=== PATIENT | female | born 1940 | race Caucasian/White ===

== ENCOUNTER → 2016-12-17 | Outpatient (CLI) | payer OTHER, MEDICARE ==
[~2016-12-17] MED LIST: AMLO-110 PO; AMLO-114 PO; ASCO100T4 PO; ASPI81TA28 PO; ATEN50TA8 PO; CHOL1000 PO; CHOL100010 PO; DENO60SO SC; DICL1GEL12 TP; DICL1GEL28 TOP; FSMD/70 PO; LPT10 PO; LSX20 PO; MELO15TA4 PO; MULT-506 PO; NRV/10 PO; OMEP20CA9 PO; POTA-331 PO; POTA20TA16 PO; TRAM-10 PO; VITA400C28 PO; VITA400C3 PO
== END | disposition home or self-care (01) ==
LOC: C.LABSPEC 11:56
PROVIDERS: ATTEND Obstetrics & Gynecology
DX: N76.0 Acute vaginitis (principal); N76.2 Acute vulvitis

== ENCOUNTER → 2017-04-26 | Day surgery (SDC) | payer OTHER, MEDICARE ==
[2017-04-19 12:03] VITALS: BMI 24.0
--- NOTE | 2017-04-19 12:35 | PAT Medication Instructions ---
Service Date Apr 19, 2017. Current Home Medication List Alendronate/Cholecalciferol (Fosamax+D 70MG/2800 Iu), 1 TABLET PO WK Amlodipine (Norvasc), 10 MG PO QAM Ascorbic Acid (Vitamin C), 100 MG PO QAM Aspirin (Aspirin Ec), 81 MG PO QAM Atenolol (Tenormin), 50 MG PO QAM Atorvastatin (Atorvastatin Calcium), 10 MG PO HS Cholecalciferol (Vitamin D3), 1 TAB PO QAM Denosumab (Prolia), 60 MG SC [id number] Diclofenac Sodium (Topical) (Voltaren 1% Top Gel), 1 DOSE TP BID PRN for RN Furosemide (Furosemide), 20 MG PO QAM Multivitamin (Multivitamin), 1 TAB PO QAM Omeprazole (Prilosec), 20 MG PO QAM Potassium Ext Rel (Klor-Con), 20 MEQ PO QAM Tramadol (Ultram), 50 MG PO Q6H PRN for RN Vitamin E (Alph-E), 400 UNITS PO QAM Medication Instructions For Your Scheduled Surgery - Hold the following medications 1 weeks prior to surgery: Vitamin E (Alph-E), 400 UNITS PO QAM - Hold the following medications 24 hours prior to surgery: Diclofenac Sodium (Topical) (Voltaren 1% Top Gel), 1 DOSE TP BID PRN - Hold the following medications the morning of surgery: Cholecalciferol (Vitamin D3), 1 TAB PO QAM Furosemide (Furosemide), 20 MG PO QAM Multivitamin (Multivitamin), 1 TAB PO QAM Potassium Ext Rel (Klor-Con), 20 MEQ PO QAM Ascorbic Acid (Vitamin C), 100 MG PO QAM - Take the following medications the morning of surgery with a sip of water OTHERWISE NOTHING TO EAT OR DRINK AFTER MIDNIGHT: Tramadol (Ultram), 50 MG PO Q6H PRN (may take if needed up to 4 hours prior to surgery) Atenolol (Tenormin), 50 MG PO QAM Amlodipine (Norvasc), 10 MG PO QAM Aspirin (Aspirin Ec), 81 MG PO QAM (okay to continue per surgeon) Omeprazole (Prilosec), 20 MG PO QAM - Take the following medications as scheduled the night before surgery: Tramadol (Ultram), 50 MG PO Q6H PRN Atorvastatin (Atorvastatin Calcium), 10 MG PO HS If you have any questions please call us at [phone] or [phone] or [phone]
[2017-04-19 14:03] LABS: BUN/CREATININE RATIO 15.6 (10-20); CALCIUM 9.3 mg/dl (8.5-10.1); CREATININE 0.99 mg/dl (0.60-1.20); POTASSIUM 4.3 mmol/L (3.5-5.1)
[~2017-04-26] VITALS: Ht 160 cm; Wt 62.6 kg
[~2017-04-26] MED LIST changes: -AMLO-110 PO; +ATROPINE SULFATE 0.1 MG/ML 5ML SYR IV PRN; +BUPIVACAINE 0.5 % 5 MG/1 ML MPF 30ML VIAL ONE; +CEFAZOLIN 2000MG IV PUSH 10 ML IV SCH; -CHOL100010 PO; +DEXAMETHASONE SOD INJ 4 MG/ML VIAL ONE; -DICL1GEL28 TOP; +FENTANYL CITRATE INJ 50 MCG/1 ML 2 ML VIAL IV PRN; +FENTANYL CITRATE INJ 50 MCG/1 ML 2 ML VIAL ONE; +GLYCOPYRROLATE INJ 0.2 MG/ML VIAL ONE; +KETOROLAC TROMETHAMINE 30 MG/ML VIAL IV. PRN; +KETOROLAC TROMETHAMINE 30 MG/ML VIAL IV. STA; +LACTATED RINGER'S 1000ML 1,000 ML IV SCH; +LIDOCAINE HCL 1% 20 ML VIAL ONE; -MELO15TA4 PO; +MIDAZOLAM HCL 1 MG/ML 2ML VIAL ONE; +MoRPHine SULFATE 4 MG/ML 1 ML CARP\\VIAL IV PRN; +NEOSTIGMINE METHYLSULFATE 5 MG/5 ML SYR ONE; -NRV/10 PO; +NURSING VERBAL MED ORDER ONE; +ONDANSETRON INJ 2 MG/ML 2 ML VIAL IV PRN; +ONDANSETRON INJ 2 MG/ML 2 ML VIAL ONE; +OXYCODONE/ACETAMINOPHEN 5-325 TAB PO PRN; +OXYCODONE/ACETAMINOPHEN 5-325 TAB PO STA; -POTA-331 PO; +PROPOFOL IV EMULSION 10 MG/ML 20 ML VIAL IV ONE; +ROCURONIUM BROMIDE 10 MG/ML 5 ML VIAL IV ONE; +SODIUM CHLORIDE 0.9% 1000ML 1,000 ML IV SCH; -VITA400C3 PO
[2017-04-26 09:26] VITALS: BP 174/79; PULSE 57; TEMP 36.4; O2SAT 97; Ht 160 cm; Wt 62.6 kg
--- NOTE | 2017-04-26 09:44 | History & Physical Bridge Note ---
H&P Re-Evaluation Bridge Note: I have examined the patient, reviewed the History & Physical and in the interval since the performance of the History & Physical I have noted the following changes of clinical significance: No changes noted
--- NOTE | 2017-04-26 11:26 | [facility] Post Operative Brief Note ---
Immediate Operative Summary Operative Date Apr 26, 2017. Pre-Operative Diagnosis Bilateral Inguinal Hernias Post-Operative Diagnosis Same Procedure(s) Performed Open Bilateral Direct Inguinal Hernia Repair with Mesh Surgeon Dr Kemp Outside Sales Advertising Executive Surgeon(s) Lucy Garcia PA-C Estimated Blood Loss 10ml Findings See dictation Specimens NONE Drains None Anesthesia General Complication(s) None Disposition Recovery Room / PACU
--- NOTE | 2017-04-26 11:29 | Discharge Instructions ---
Discharge Instructions Date of Service Apr 26, 2017. Admission Reason for Admission: Bilateral Inguinal Hernia Discharge Discharge Diagnosis / Problem: Same Discharge Goals Goal(s): Decrease discomfort Activity Recommendations Activity Limitations: per Instructions/Follow-up section Lifting Limitations: no more than 10 pounds (for 6 weeks) Shower/Bathe: tomorrow (shower only) . Instructions / Follow-Up Instructions / Follow-Up ACTIVITY RECOMMENDATIONS: * Walk as much as possible. * No heavy lifting (>10 lbs.) for 6 weeks. SPECIAL CARE INSTRUCTIONS: * Ice to hernia repair site on and off until bedtime tonight. * May shower in 24 hours. Let water run over area and pat dry. * Leave steri strips on for one week. * Call the surgeon's office with any questions or concerns - (ex. temperature higher than 101 degrees F, excessive bleeding or pain). MEDICATIONS: Resume previous medications unless instructed otherwise by your surgeon. * Ibuprofen 600 mg every 6 hours with food * Percocet 1 every 4 hours, as needed for pain FOLLOW UP VISIT: If not already scheduled, please call the office to schedule a two week follow- up appointment. Office number Current Hospital Diet Patient's current hospital diet: Discharge Diet Recommended Diet: Regular Diet Procedures Procedures Performed: Open Bilateral Direct Inguinal Hernia Repair with Mesh Pending Studies Studies pending at discharge: no Medical Emergencies . Who to Call and When: Medical Emergencies: If at any time you feel your situation is an emergency, please call 911 immediately. . Non-Emergent Contact Non-Emergency issues call your: Primary Care Provider, Surgeon Call Non-Emergent contact if: your pain is worsening, wound has increased drainage, wound has increased redness . "Provider Documentation" section prepared by Kevin Kemp. . VTE Core Measure Inpt VTE Proph given/why not?: Treatment not indicated
[2017-04-26 12:20] VITALS: BP 153/68; PULSE 53; TEMP 36.5; O2SAT 95
--- NOTE | 2017-04-26 12:34 | Anesthesiology Progress Note ---
Anesthesia Post Op Note Date & Time Apr 26, 2017 at 12:34 Vital Signs Pain Intensity: 0 Vital Signs Past 12 Hours Date Time Temp Pulse Resp B/P (MAP) Pulse Ox O2 Delivery O2 Flow Rate FiO2 04/26/17 12:14 46 13 100 04/26/17 12:14 46 13 04/26/17 12:11 162/61 04/26/17 12:09 48 11 100 04/26/17 12:09 48 11 04/26/17 12:08 47 16 100 04/26/17 12:08 47 16 04/26/17 12:06 148/57 04/26/17 12:05 146/63 04/26/17 12:03 48 16 04/26/17 12:03 48 16 100 04/26/17 11:55 47 13 147/61 100 Oxymask 10 04/26/17 11:45 51 10 149/62 100 Oxymask 10 04/26/17 11:38 36.3 59 12 151/68 100 Oxymask 10 04/26/17 09:26 36.4 57 18 174/79 (110) 97 Room Air Notes Mental Status: alert / awake / arousable, participated in evaluation Pt Amnestic to Procedure: Yes Nausea / Vomiting: adequately controlled Pain: adequately controlled Airway Patency, RR, SpO2: stable & adequate BP & HR: stable & adequate Hydration State: stable & adequate Anesthetic Complications: no major complications apparent
[2017-04-26 12:50] VITALS: BP 141/80; PULSE 50; O2SAT 97
[2017-04-26 13:20] VITALS: BP 157/66; PULSE 57; O2SAT 100
[2017-04-26 14:20] VITALS: BP 146/67; PULSE 61; TEMP 36.4; O2SAT 98
[2017-04-26 15:16] VITALS: BP 148/66; PULSE 61; TEMP 36.6; O2SAT 98
--- NOTE | 2017-04-26 17:19 | OPERATIVE REPORT ---
DATE OF OPERATION: 04/26/2017 PREOPERATIVE DIAGNOSIS: Bilateral inguinal hernia. POSTOPERATIVE DIAGNOSIS: Bilateral direct inguinal hernia. PROCEDURE: Repair of bilateral indirect inguinal hernia. SURGEON: Kevin Kemp MD SUPERVISOR MENDING: Lucy López PA-C FINDINGS OF PROCEDURE: The patient had a weakness in the floor of the canal through which there was preperitoneal fat protruding. This was in the mid portion of the floor of the canal and this was present bilaterally. No femoral hernia was identified. There was no indirect component. DESCRIPTION OF PROCEDURE: The patient was given a general anesthetic and the area was prepped and draped in usual sterile fashion. Each of the hernias was repaired in a similar fashion since the findings were similar. The left side was approached first followed by the right. An inguinal incision was made, carried down through the subcutaneous tissue to the external oblique fascia. The external ring was identified, a small incision was made in the external oblique and the external oblique was opened through the external ring exposing the inguinal canal. The floor of the canal was easily identified and the protruding fat with a small hernia sac was identified. The round ligament surrounded by some fat was identified laterally in the canal. This was mobilized. The ilioinguinal nerve was mobilized. So as to not trap the ilioinguinal nerve during suturing of the mesh, the ilioinguinal nerve was divided. The round ligament on each side was isolated from the internal ring to its exit over the pubic tubercle, was clamped at both of those areas, the intervening portion removed and each end was ligated with 3-0 Vicryl. A 2 x 4 piece of mesh was placed in the floor of the canal and sewn to the anterior surface of the internal oblique medially, to the shelving border of the inguinal ligament laterally and to the tissue over the pubic bone inferiorly. The external oblique was closed over that then using a running 2-0 Vicryl. The deep subcutaneous tissue was closed with running 2-0 Vicryl. The superficial subcutaneous tissue was closed with running 3-0 Vicryl and the skin was closed with 4-0 Monocryl in a running subcuticular fashion. The skin was anesthetized with 0.5% Marcaine. The skin was cleansed, dried, benzoin placed, Steri-Strips applied. Estimated blood loss was 10 mL. Sponge, needle and instrument counts were correct prior to closure. The patient tolerated the surgical procedure without complication and was transferred to recovery. I attest to the content of the Intraoperative Record and any orders documented therein. Any exception s are noted below.
== END | disposition home or self-care (01) ==
LOC: C.ACU 08:47
PROVIDERS: ATTEND Surgery
DX: K40.20 Bilateral inguinal hernia, without obstruction or gangrene, not specified as recurrent (principal); I10 Essential (primary) hypertension; M16.9 Osteoarthritis of hip, unspecified; E78.00 Pure hypercholesterolemia, unspecified; M81.0 Age-related osteoporosis without current pathological fracture; Z96.652 Presence of left artificial knee joint; Z90.10 Acquired absence of unspecified breast and nipple; Z79.82 Long term (current) use of aspirin

== ENCOUNTER 2017-09-11 10:06 | Emergency (ER) | payer OTHER, MEDICARE ==
[~2017-09-11] VITALS: Ht 160 cm; Wt 63.0 kg
[~2017-09-11 10:06] MED LIST changes: -ATROPINE SULFATE 0.1 MG/ML 5ML SYR IV PRN; -BUPIVACAINE 0.5 % 5 MG/1 ML MPF 30ML VIAL ONE; -CEFAZOLIN 2000MG IV PUSH 10 ML IV SCH; -DEXAMETHASONE SOD INJ 4 MG/ML VIAL ONE; -FENTANYL CITRATE INJ 50 MCG/1 ML 2 ML VIAL IV PRN; -FENTANYL CITRATE INJ 50 MCG/1 ML 2 ML VIAL ONE; -GLYCOPYRROLATE INJ 0.2 MG/ML VIAL ONE; -KETOROLAC TROMETHAMINE 30 MG/ML VIAL IV. PRN; -KETOROLAC TROMETHAMINE 30 MG/ML VIAL IV. STA; -LACTATED RINGER'S 1000ML 1,000 ML IV SCH; -LIDOCAINE HCL 1% 20 ML VIAL ONE; -MIDAZOLAM HCL 1 MG/ML 2ML VIAL ONE; -MoRPHine SULFATE 4 MG/ML 1 ML CARP\\VIAL IV PRN; -NEOSTIGMINE METHYLSULFATE 5 MG/5 ML SYR ONE; -NURSING VERBAL MED ORDER ONE; -ONDANSETRON INJ 2 MG/ML 2 ML VIAL IV PRN; -ONDANSETRON INJ 2 MG/ML 2 ML VIAL ONE; -OXYCODONE/ACETAMINOPHEN 5-325 TAB PO PRN; -OXYCODONE/ACETAMINOPHEN 5-325 TAB PO STA; -PROPOFOL IV EMULSION 10 MG/ML 20 ML VIAL IV ONE; -ROCURONIUM BROMIDE 10 MG/ML 5 ML VIAL IV ONE; -SODIUM CHLORIDE 0.9% 1000ML 1,000 ML IV SCH
[2017-09-11 10:09] VITALS: TEMP 36.4; Ht 160 cm; Wt 63.0 kg
--- NOTE | 2017-09-11 10:31 | EMERGENCY ROOM VISIT NOTE ---
History Report prepared by Altagracia: Deneen Hartman Under the Supervision of: Dr. Everton Durand M.D. 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 Negative abdominal pain. The cough has been dry and the patient is a nonsmoker. She states her daughter is in the hospital currently with flu and bronchial pneumonia and the doctors upstairs recommended the patient get checked for flu. Source of History: patient Onset: past few days Position: chest Quality: other (cough) Timing: worsening Associated Symptoms: + sorethroat, No abdominal pain Review of Systems See HPI for pertinent positives and negatives. A total of ten systems were reviewed and were otherwise negative. Past Medical & Surgical Medical Problems: (1) Breast cancer (2) Disc Degeneration Nos (3) Esophageal Reflux (4) History of bladder surgery (5) Hypertension Nos (6) Lumbosacr Spondylolysis (7) Osteoarthros Nos-L/Leg (8) Sacroiliitis Nec (9) Spinal Stenosis-Lumbar (10) Spinal Stenosis-Lumbar Surgical Problems: (1) Hallux Valgus (2) History of hysterectomy (3) Knee Joint Replacement Status Social History Smoking Status: Never Smoker Alcohol Use: none Drug Use: none Marital Status: Housing Status: lives with family Occupation Status: retired Current/Historical Medications Scheduled Amlodipine (Norvasc), 10 MG PO QAM Ascorbic Acid (Vitamin C), 100 MG PO QAM Aspirin (Aspirin Ec), 81 MG PO QAM Atenolol (Tenormin), 50 MG PO QAM Atorvastatin (Lipitor), 10 MG PO HS Cholecalciferol (Vitamin D3), 1 TAB PO QAM Denosumab (Prolia), 60 MG SC [id number] Furosemide (Furosemide), 20 MG PO QAM Omeprazole (Prilosec), 20 MG PO QAM Oseltamivir Phosphate (Tamiflu), 1 CAP PO QD Potassium Ext Rel (Klor-Con), 20 MEQ PO QAM Vitamin E (Alph-E), 400 UNITS PO QAM Scheduled PRN Diclofenac Sodium (Topical) (Voltaren 1% Top Gel), 1 DOSE TP BID PRN for RN Allergies Coded Allergies: Sulfamethoxazole w/Trimethoprim (Verified Allergy, Unknown, nausea and vomiting, 09/11/17) Physical Exam Vital Signs Date Time Temp Pulse Resp B/P (MAP) Pulse Ox O2 Delivery O2 Flow Rate FiO2 09/11/17 10:53 74 18 135/76 98 Room Air 09/11/17 10:09 36.4 76 18 169/89 98 Room Air Physical Exam GENERAL: Awake, alert, well-appearing, NAD HENT: Normocephalic, atraumatic. EYES: Normal conjunctiva. Sclera non-icteric. NECK: Supple. No nuchal rigidity. FROM. RESPIRATORY: CTAB, no rhonchi, wheezing, crackles CARDIAC: RRR, no MRG ABDOMEN: Soft, NTND, BS+ MSK: No chest wall TTP, no LE edema NEURO: GCS 15, CN 2-12 intact, moves all 4s on command SKIN: No rash or jaundice noted. Medical Decision & Procedures ER Provider Diagnostic Interpretation: Radiology results as stated below per my review and radiologist interpretation: CHEST ONE VIEW PORTABLE CLINICAL HISTORY: cough, daughter inpatient w/ PNA, flu, fever cough. Dyspnea. COMPARISON STUDY: 10/13/2006 FINDINGS: The bones soft tissues and hemidiaphragms are normal. The cardiomediastinal silhouette is normal. The lungs are clear. The pulmonary vasculature is normal. IMPRESSION: Negative chest. The above report was generated using voice recognition software. It may contain grammatical, syntax or spelling errors. Electronically signed by: Kevin Peterson M.D. 09/11/2017 10:47 AM Laboratory Results Test 09/11/17 10:35 09/11/17 11:28 Influenza Type A Antigen Neg for Influ A (NEG) Influenza Type B Antigen Neg for Influ B (NEG) Bedside Hemoglobin 12.2 g/dl (12.0-16.0) Bedside Hematocrit 36 % (37-47) Bedside Sodium 144 mEq/L (135-144) Bedside Potassium 3.9 mEq/L (3.3-5.0) Bedside Chloride 105 mEq/L (101-112) Bedside Total CO2 27 mEq/l (24-31) Anion Gap 17.0 mmol/L (16-25) Bedside Blood Urea Nitrogen 17 mg/dl (7-18) Bedside Creatinine 0.9 mg/dl (0.6-1.3) Bedside Glucose (other) 89 mg/dl (70-99) Bedside Ionized Calcium (Connor) 1.19 mmol/l (1.12-1.32) Laboratory results reviewed by me Medications Administered Medications (Trade) Dose Ordered Sig/Wander Route Start Time Stop Time Status Last Admin Dose Admin Oseltamivir Phosphate (Tamiflu Cap) 75 mg NOW STAT PO 09/11/17 11:02 09/11/17 11:03 DC 09/11/17 11:07 75 MG ED Course 1025: The patient was evaluated in room C5. A complete history and physical exam was performed. 1128: I reevaluated the patient. She is feeling well and resting comfortably. I discussed her results and discharge instructions and she verbalized complete understanding and agreement. 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 Triage Nursing notes reviewed. The patient's presentation and history were concerning for flu, pneumonia, bronchitis and URI. Patient was seen and evaluated at the bedside. She does present from upstairs as the patient unfortunately does have a daughter who is in patient with pneumonia, fever, seizures, and influenza. She had developed some cough 2 days ago she was told to report downstairs for further evaluation and treatment. Patient did complain of a nonproductive cough. Patient denies any tobacco use. Patient denies any shortness of breath or chest pains. Patient did have a flu swab, chest x-ray. Patient was also given a first dose of Tamiflu and did have kidney function obtained. Patient's kidney function is normal. Patient will be treated prophylactically with Tamiflu. Patient was given first dose here. Patient was given a prescription for 6 more days. Patient's chest x-ray was clear flu was negative. Patient was given strict follow-up, discharge, and return precautions. All questions were answered. Patient was deemed suitable for outpatient follow-up at this time. Patient agreed with the plan of care and was safely discharged home. Medication Reconcilliation Current Medication List: was personally reviewed by me Blood Pressure Screening Patient's blood pressure: Elevated blood pressure Blood pressure disposition: Elevated BP felt to be situational Impression Primary Impression: Acute bronchitis Additional Impressions: Cough Sore throat Scribe Attestation The scribe's documentation has been prepared under my direction and personally reviewed by me in its entirety. I confirm that the note above accurately reflects all work, treatment, procedures, and medical decision making performed by me. Departure Information Dispostion Home / Self-Care Prescriptions Oseltamivir (Tamiflu) 75 Mg Cap 75 MG PO DAILY for 6 Days, #6 CAP Prov: Everton Durand M.D. 09/11/17 Referrals Fer Porter PA-C (PCP) Patient Instructions Coughing Techniques, [facility], Sore Throat Additional Instructions Please return to the emergency department if you have worsening or recurrent symptoms not amenable to at-home treatment. Please call for a follow-up appointment with her primary care physician. Please take your medications as prescribed. If you have other concerns and/or complaints please feel free to also call your primary care physician's office or return the ED for further evaluation, management, and treatment. You may take tylenol 500 mg every 6 hours as needed for pain. Take your medications as prescribed. You may consider [id number] type medications to help with sore throat. You may also try salt water gargles or tea with honey and lemon. If you do have cough you can try the Tessalon Perles or Cepacol as a cough suppressant. If you would like an expectorant consider trying Mucinex. You have been examined and treated today on an emergency basis only. This is not a substitute for, or an effort to provide, complete comprehensive medical care. It is impossible to recognize and treat all injuries or illnesses in a single emergency department visit. It is therefore important that you follow up closely with [facility], your PCP, and/or your specialist(s). Call as soon as possible for an appointment. Thank you for your time and consideration. I look forward to speaking with you again soon. Please don't hesitate to call us if you have any questions. Problem Qualifiers Primary Impression: Acute bronchitis Bronchitis organism: unspecified organism Qualified Codes: J20.9 - Acute bronchitis, unspecified
--- NOTE | 2017-09-11 10:48 | DIAGNOSTIC IMAGING REPORT ---
CHEST ONE VIEW PORTABLE CLINICAL HISTORY: cough, daughter inpatient w/ PNA, flu, fever cough. Dyspnea. COMPARISON STUDY: 10/13/2006 FINDINGS: The bones soft tissues and hemidiaphragms are normal. The cardiomediastinal silhouette is normal. The lungs are clear. The pulmonary vasculature is normal. IMPRESSION: Negative chest. The above report was generated using voice recognition software. It may contain grammatical, syntax or spelling errors. Electronically signed by: Kevin Peterson M.D. 09/11/2017 10:47 AM Dictated Date/Time: 09/11/2017 10:46 AM
[2017-09-11 10:53] VITALS: BP 135/76; PULSE 74; O2SAT 98
[2017-09-11] MEDS ORDERED: OSELTAMIVIR PHOSPHATE 75 MG CAP PO STA (11:02)
[2017-09-11 11:15] LABS: INFLUENZA B ANTIGEN Neg for Influ B (NEG)
[2017-09-11] MEDS ORDERED: OSEL75CA23 PO (11:30)
[2017-09-11 11:38] LABS: ISTAT CREATININE 0.9 mg/dl (0.6-1.3); ISTAT IONIZED CALCIUM 1.19 mmol/l (1.12-1.32); ISTAT POTASSIUM 3.9 mEq/L (3.3-5.0)
[2017-09-11] MEDS ORDERED: OSEL75CA12 PO (11:42)
== END 2017-09-11 11:23 | disposition home or self-care (01) ==
LOC: C.EDB 10:07 → C.EDC 11:23
DX: J20.9 Acute bronchitis, unspecified (principal); R05 Cough; J02.9 Acute pharyngitis, unspecified; K21.9 Gastro-esophageal reflux disease without esophagitis; I10 Essential (primary) hypertension; M19.90 Unspecified osteoarthritis, unspecified site; M46.1 Sacroiliitis, not elsewhere classified; Z79.82 Long term (current) use of aspirin; Z88.8 Allergy status to other drugs, medicaments and biological substances

== ENCOUNTER → 2017-10-27 | Outpatient (CLI) | payer OTHER, MEDICARE ==
[~2017-10-27] MED LIST changes: -FSMD/70 PO; -MULT-506 PO; +POTA-639 PO; -POTA20TA16 PO; -TRAM-10 PO
== END | disposition home or self-care (01) ==
LOC: C.LABSPEC 17:37
PROVIDERS: ATTEND Physician Assistant
DX: R10.9 Unspecified abdominal pain (principal)

== ENCOUNTER → 2018-01-17 | Outpatient (CLI) | payer OTHER, MEDICARE ==
[~2018-01-17] MED LIST changes: -AMLO-114 PO; +AMLO10TA3 PO
== END | disposition home or self-care (01) ==
LOC: C.LABSPEC 17:59
PROVIDERS: ATTEND Obstetrics & Gynecology
DX: N76.2 Acute vulvitis (principal)

== ENCOUNTER 2023-08-17 13:57 | Inpatient (IN) ==
--- NOTE | 2023-08-17 14:22 | ED Triage Note ---
Date of Service August 17, 2023 Provider in Triage Author: Maria Teresa Callaway History of Present Illness This patient was briefly evaluated while in triage. An abbreviated physical exam was performed. This patient is a 82-year-old Female who presents to the ED for evaluation of abnormal blood work. She states it was ordered by her PCP due to fatigue. She was called and told she might need a blood transfusion. Does note that she has had black stools. Reports a history of anemia but has never received a blood transfusion before. Physical Exam VITALS: Vitals are noted on the nurse's note and reviewed by myself. GENERAL: This is an 82-year-old female, in no acute distress, well-developed well-nourished. SKIN: Pale appearing. HEART: Regular rate and rhythm without murmurs gallops or rubs. LUNGS: Clear to auscultation bilaterally without wheezes, rales or rhonchi. NEURO: Patient was alert and oriented to person place and time. Initial orders for labs and / or imaging were placed and patient was placed in the waiting area until a bed is available. Please see further documentation for the full ED course. MDM / Impression Impression Impression: Anemia, Acute GI bleeding
[2023-08-17] MEDS ORDERED: SODIUM CHLORIDE 0.9% 250 ML IV PRN ×2 (14:23→16:47)
[2023-08-17 15:02] LABS: Basophils # (auto) 0.03 K/uL (0.00-0.20); Basophils % (auto) 0.6 %; Eosinophils # (auto) 0.15 K/uL (0.00-0.50); Eosinophils % (auto) 2.8 %; Hemoglobin 7.7 g/dl (12.0-16.0); Immature Granulocytes # (auto) 0.01 K/uL (0.01-0.20); Immature Granulocytes % (auto) 0.2 %; Lymphocytes # (auto) 1.09 K/uL (1.20-3.40); Lymphocytes % (auto) 20.4 %; Mean Corpuscular Hemoglobin 28.8 pg (25.0-34.0); Mean Corpuscular Hgb Conc 30.8 g/dL (32.0-36.0); Mean Corpuscular Volume 93.6 fL (80.0-100.0); Mean Platelet Volume 11.5 fL (9.4-12.4); Monocytes # (auto) 0.54 K/uL (0.11-0.59); Monocytes % (auto) 10.1 %; Neutrophils # (auto) 3.53 K/uL (1.40-6.50); Neutrophils % (auto) 65.9 %; Platelet Count 147 K/uL (130-400); RDW Standard Deviation 54.5 fL (36.4-46.3); Red Blood Count 2.67 M/uL (4.20-5.40); White Blood Count 5.35 K/ul (4.8-10.8)
[2023-08-17 15:07] LABS: INR 0.9 (0.9-1.1); Partial Thromboplastin Ratio 0.9; Partial Thromboplastin Time 25 Seconds (21-31); Prothrombin Time 10.3 Seconds (9.0-12.0)
[2023-08-17 15:19] LABS: Albumin Globulin Ratio 1.6 (0.9-2); Albumin Level 3.8 gm/dl (3.4-5.0); BUN Creatinine Ratio 19.7 (10-20); Bilirubin,Total 0.3 mg/dl (0.2-1.0); Calcium 9.3 mg/dl (8.6-10.3); Creatinine Clr Calc Pharmacy 25.2 ml/min; Est GFR (African American) 38.7 ml/min; Est GFR (Non-African American) 33.4 ml/min; Globulin 2.4 gm/dl (2.5-4.0); Potassium 4.4 mmol/L (3.5-5.1); RBC Morphology Unremarkable; Total Protein 6.2 gm/dl (6.0-8.3)
--- NOTE | 2023-08-17 15:33 | Emergency Department Note ---
History of Present Illness General Chief complaint: Referred by Doctor Stated complaint: NEEDS BLOOD TRANFUSION, REF BY DOC Time Seen by Provider: 08/17/23 15:10 Source: patient, RN notes reviewed and old records reviewed (I have reviewed labs/records that were sent over from [place] outpatient from today) Mode of arrival: ambulatory Limitations: no limitations History of Present Illness This patient is a 82-year-old female comes in after being sent here from her primary doctor's office. She says she had been feeling well for the last 3 to 4 weeks she feels very tired occasionally she will feel dizzy. She saw her doctor and they called her today because her hemoglobin had dropped to 8 from 10 2 months ago she does have some heart palpitations at times they put her on a heart monitor but no chest pain she is on no blood thinners except for aspirin. She has arthritis. She does have a history of having colonoscopies in April which had polyps were otherwise unremarkable she tells me no history of GI bleed. No fall or trauma she says her stool has been black and dark at times lately. Home Medications Medication Instructions Recorded Confirmed Type aspirin 81 mg tablet,delayed 81 mg PO QPM 08/21/18 08/17/23 History release atorvastatin 10 mg tablet (Lipitor) 10 mg PO HS 08/21/18 08/17/23 History amlodipine 10 mg tablet (Norvasc) 5 mg PO QAM 04/07/21 08/17/23 History docusate sodium 100 mg capsule 100 mg PO QAM PRN Constipation 05/16/21 08/17/23 History (Stool Softener) metoprolol tartrate 25 mg tablet 25 mg PO QAM 05/16/21 08/17/23 History omeprazole 20 mg capsule,delayed 20 mg PO DAILY 04/20/22 08/17/23 History release ascorbate calcium (vitamin C) 500 500 mg PO DAILY 04/22/22 08/17/23 History mg tablet cyanocobalamin (vitamin B-12) 1,000 mcg PO DAILY 04/22/22 08/17/23 History 1,000 mcg capsule vitamin E (dl, acetate) 45 mg (100 45 mg PO DAILY 04/22/22 08/17/23 History unit) capsule estradiol 0.01% (0.1 mg/gram) 1 g vaginal 2XWK #42.5 grams 03/25/23 08/17/23 Rx vaginal cream triamcinolone acetonide 0.1 % 1 applic topical 2XWK #30 grams 03/25/23 08/17/23 Rx topical ointment losartan 50 mg tablet 50 mg PO DAILY #30 tabs 04/12/23 08/17/23 Rx ibandronate 150 mg tablet 150 mg PO MONTHLY #1 tab 04/27/23 08/17/23 Rx alendronate 70 mg tablet (Fosamax) 70 mg PO .weekly #12 tabs 07/30/23 08/17/23 Rx calcitriol 0.25 mcg capsule 0.25 mcg PO Q OTHER DAY #45 caps 08/05/23 08/17/23 Rx famotidine 20 mg tablet 20 mg PO DAILY 08/17/23 08/17/23 History furosemide 20 mg tablet 20 mg PO DAILY PRN .edema 08/17/23 08/17/23 History magnesium oxide 500 mg capsule 500 mg PO DAILY 08/17/23 08/17/23 History potassium chloride 20 mEq 20 meq PO DAILY 08/17/23 08/17/23 History tablet,extended release(part/cryst) Allergies Allergy/AdvReac Type Severity Reaction Status Date / Time sulfamethoxazole Allergy Mild nausea and Verified 08/17/23 17:25 vomiting trimethoprim Allergy Mild nausea and Verified 08/17/23 17:25 vomiting Bactrim Allergy Unknown nausea and Verified 09/11/17 10:48 vomiting lisinopril AdvReac Intermediate Cough Verified 08/17/23 17:25 oxycodone [From Percocet] AdvReac Intermediate Nausea Verified 08/17/23 17:25 Past Med/Surg History Medical History Stage 3b chronic kidney disease Weight loss Anemia Acute kidney injury Hypokalemia Proteinuria Proteinuria Hyperparathyroidism Hypercalcemia Stage 3a chronic kidney disease Hiatal hernia Anemia Osteoporosis HX Chronic back pain Rheumatoid arthritis Osteoarthritis GERD (gastroesophageal reflux disease) SOB (shortness of breath) on exertion "OUT OF SHAPE"/? DECONDITIONING Hyperlipidemia Hypertension Breast cancer RIGHT S/P LUMPECTOMY WITH LND/XRT (2009) Surgical History S/P repair of ventral hernia (12/05/18) Ventral hernia repair Dr. Kemp H/O foot surgery RIGHT X 3 History of total knee replacement LEFT Hx of breast reduction, elective History of herniorrhaphy (04/26/17) B/L inguinal hernia repair: 04/26/17: Grade 1 view, MAC 4, ETT 7.0 at [facility] With Dr. Kemp History of hysterectomy TOTAL History of bladder surgery X3 Family History Father Family hx of colon cancer Cancer Daughter Stroke Brother Stroke Social History Smoking Status: Never smoker Second Hand Exposure: No; Do You Dip or Chew Tobacco: No; Hx Alcohol Use: No Hx Substance Use: No Preferred Language: Greek Communication Ability: Effective Back Tufter Required: Voice Beliefs That Will Affect Care: None marital status: Current Living Situation: Spouse current occupational status: retired How many Children do You have: 4 Other Information That Helps Us Care for You: No Feels Safe at Home: Yes during the past year weight has: remained stable Assistive Devices: Walker Assistive Devices Comment: walker only if its far Review of Systems A total of 10 systems reviewed and were otherwise negative Physical Exam Vital Signs Vital Signs - 24 hr 08/17/23 14:21 Temperature 36.6 C Temperature Source Temporal Artery Scan Pulse Rate 84 Respiratory Rate 20 Respiratory Effort / Characteristics Non-Labored Spontaneous Respiratory Depth Normal Respiratory Pattern Regular Blood Pressure 139/70 Blood Pressure Mean 93 Pulse Oximetry 99 Oxygen Delivery Method Room Air Sepsis Recent Fever Within 48 Hours No Sepsis New/Unexplained Change in Mental Status No Sepsis Action Taken by Nursing No Action Required General: Well developed well nourished [id number] older female who in no acute distress, breathing comfortably on room air. Normal speech HEENT: Normal cephalic atraumatic. Pupils are equal round and reactive to light. Extraocular movements are intact. Oropharynx is pink with moist mucous membranes. No swelling of the mouth lips or tongue. Neck: Supple with a midline trachea. No meningeal signs or stiffness, no JVD or bruits. No Stridor. Chest: Clear to auscultation bilaterally. No wheezes or rhonchi. No increased work of breathing. Heart: Regular rate and rhythm without murmurs or gallops. Abdomen: Soft nontender, nondistended without rebound guarding or rigidity. Rectal (performed in the presence of a female nurse journal clerk): Normal external rectal exam. On digital rectal exam. There were no masses or hemorrhoids seen or felt. Stool was not grossly bloody but was dark and guaiac positive Extremities: No cyanosis clubbing or edema. No calf tenderness or assymetry Spine/Back. Non tender to palpation. No CVA tenderness Skin: Good turgor without rashes. Neurologic exam: Cranial nerves two through 12 are intact. Motor and sensation are intact and symmetrical throughout. Course Administered Medications Atorvastatin Calcium (Atorvastatin 10 Mg Tab) 10 mg PO HS BILL Stop: 09/16/23 20:59 Last Admin: 08/17/23 21:38 Dose: 10 mg Documented By: GEMINI Pantoprazole Sodium 40 mg/ (Syringe) 10 mls @ 5 mls/min IV BID BILL Stop: 09/16/23 20:59 Last Admin: 08/17/23 21:38 Dose: 5 mls/min Documented By: GEMINI Discontinued Medications Pantoprazole Sodium 40 mg/ (Syringe) 10 mls @ 5 mls/min IV NOW ONE Stop: 08/17/23 16:47 Last Admin: 08/17/23 17:03 Dose: 5 mls/min Documented By: NEHA Medical Decision Making Differential Diagnosis Anemia, GI bleed, infection, electrolyte or metabolic abnormality Medical Records Attestation: I reviewed the patient's medical records. Home Medications Current Medication List: was personally reviewed by me Laboratory Data Attestation: I reviewed the patient's lab results. 08/17/23 14:30 08/17/23 14:30 Lab Results 08/17/23 08/17/23 Range/Units 14:30 15:50 WBC 5.35 (4.8-10.8) K/ul RBC 2.67 L (4.20-5.40) M/uL Hgb 7.7 L (12.0-16.0) g/dl Hct 25.0 L (37.0-47.0) % MCV 93.6 (80.0-100.0) fL MCH 28.8 (25.0-34.0) pg MCHC 30.8 L (32.0-36.0) g/dL RDW Std Deviation 54.5 H (36.4-46.3) fL RDW Coeff of Malou 16.0 H (11.5-14.5) % Plt Count 147 (130-400) K/uL MPV 11.5 (9.4-12.4) fL Immature Gran % (Auto) 0.2 % Neut % (Auto) 65.9 % Lymph % (Auto) 20.4 % [place] % (Auto) 10.1 % Eos % (Auto) 2.8 % Baso % (Auto) 0.6 % Reticulocyte % (Auto) 2.68 H (0.50-2.00) % Neut # (Auto) 3.53 (1.40-6.50) K/uL Lymph # (Auto) 1.09 L (1.20-3.40) K/uL [place] # (Auto) 0.54 (0.11-0.59) K/uL Eos # (Auto) 0.15 (0.00-0.50) K/uL Baso # (Auto) 0.03 (0.00-0.20) K/uL Reticulocyte # 0.070 (0.020-0.100) 10^6/uL Immature Gran # (Auto) 0.01 (0.01-0.20) K/uL RBC Morphology Unremarkable PT 10.3 (9.0-12.0) Seconds INR 0.9 (0.9-1.1) APTT 25 (21-31) Seconds PTT Ratio 0.9 Sodium 140 (136-145) mmol/L Potassium 4.4 (3.5-5.1) mmol/L Chloride 108 H (98-107) mmol/L Carbon Dioxide 25 (21-32) mmol/L Anion Gap 7 (3-11) BUN 29 H (6-23) mg/dl Creatinine 1.47 H (0.6-1.2) mg/dl Est Cr Clr Drug Dosing 25.2 ml/min Est GFR ( Amer) 38.7 ml/min Est GFR (Non-Af Amer) 33.4 ml/min BUN/Creatinine Ratio 19.7 (10-20) Glucose 100 H (70-99(Fasting)) mg/dl Calcium 9.3 (8.6-10.3) mg/dl Iron 41 (35-150) mcg/dl TIBC 310 (250-450) mcg/dl Unsaturated IBC 269 (155-355) mcg/dl Transferrin % Sat 13 L (15-50) % Ferritin 24.5 (8-388) ng/ml Total Bilirubin 0.3 (0.2-1.0) mg/dl AST 13 (13-39) U/L ALT 9 (7-52) U/L Alkaline Phosphatase 64 (34-104) U/L Total Protein 6.2 (6.0-8.3) gm/dl Albumin 3.8 (3.4-5.0) gm/dl Globulin 2.4 L (2.5-4.0) gm/dl Albumin/Globulin Ratio 1.6 (0.9-2) Blood Type O Positive Blood Type Recheck O Positive Antibody Screen NEGATIVE Crossmatch See Detail Imaging Data Attestation: I personally reviewed and interpreted this imaging study as follows: My Impression: Chest x-rayno acute infiltrate, failure, pneumothorax seen. ECG Data Attestation: I personally reviewed and interpreted this ECG as follows: Indication: + weakness Rate (beats per minute): 71 Rhythm: + normal sinus ECG Intervals/blocks: + First degree AV block, + Normal QRS and + Normal QT ECG Loyal: + Normal ECG ST segments: + Normal ST segments ECG Findings: no PACs or no PVCs Comparison ECG Date: from (10/19/21) Change: no significant change MDM Narrative This patient comes in as described above. I did see her out in triage. She was sent over after having low hemoglobin hemoglobin here is 7.7 she has been typed and screened she will likely need a transfusion. EKG shows no ischemic changes she has no sign of electrolyte or metabolic abnormalities. Chest x-ray was unremarkable. She has no electrolyte or metabolic abnormalities remained hemodynamically stable. I did a rectal exam and she is guaiac positive. I did consent her for a blood transfusion. I have discussed the case at length [facility] Dr[facility] her for further treatment evaluation and likely transfusion. Continuous cardiac monitoring: Orders were placed in EMR for continuous cardiac monitoring. Upon my evaluation patient with to be in normal sinus rhythm rate of 77 Impression & Plan Acute GI bleeding, Anemia, Weakness, Heme positive stool Discharge Plan Visit Data Chief Complaint: Referred by Doctor Stated Complaint: NEEDS BLOOD TRANFUSION, REF BY DOC ED Provider: Aldo Duvall Discharge Problem: Acute GI bleeding, Anemia, Weakness, Heme positive stool Patient Disposition: Admitted As Inpatient Discharge Instructions Interventions: ED Discharge Assessment Last Done: 08/17/23 17:07 Discharge Problem: Anemia Qualifiers: Anemia type: unspecified type Qualified Code(s): D64.9 - Anemia, unspecified
--- NOTE | 2023-08-17 16:18 | History & Physical Report ---
Date of Service August 17, 2023 Assessment & Plan (1) Acute GI bleeding: Plan: -Admit to med/tele -Currently hemodynamically stable and stable on RA -Presented to the ED at the recommendation of her PCP due to Hgb of 7.7 on outpatient labs -Patient has been experiencing progressive fatigue, lightheadedness/dizziness with position changes and exertion, and now with melanotic stool -Hgb is 7.7 today, down from 11 as of February of 2023 -Anemia workup has been ordered prior to transfusion -Likely has been having progression of her previously diagnosed erythematous mucosa of the gastric antrum and duodenum -Patient was consented for blood, type and screen/cross obtained with 2 units on hold in the ED -We will start BID IV pantoprazole now -Will give her 1 unit PRBC's on admission as she has been symptomatic with her anemia -Will monitor CBC q6h following transfusion -GI consult placed -Clear liquids for now, NPO at midnight in case of procedure with GI tomorrow -BL KATHE's for DVT PPX -AM CBC, CMP, PT/INR (2) Anemia: Plan: -See GI bleeding plan -Follow anemia workup -GI consult placed (3) Stage 3b chronic kidney disease: Plan: -Renal function is stable -Continue to monitor (4) Hypertension: Plan: -Stable -Hold losartan and amlodipine for now to avoid hypotension -Conitnue metoprolol for now Plan The patient was discussed with Dr. Schneider at the time of the admission History of Present Illness Chief Complaint: Concern for GI bleed Primary Care Provider: YAAKOV Reyes Carito is an 82 year old female with a PMH significant for HTN, hyperlipidemia, hyperparathyroidism, stage 3 CKD who presented to the [facility] ED at the recommen dation of her PCP due to a Hgb of 7.7 on outpatient labs. She remained stable in the ED. Labs were significant for a hgb of 7.7 (down from 11 as of 03/24/23), HCT of 25, MCHC of 30, MCV WNL, BUN of 29. Prior to admission the patient was consented for blood, type/screen was ordered, and type/crossed was ordered with 2 units being held for now. At the time of the exam the patient was sitting in bed in no acute distress with her bedside, history was obtained from both. She states that her PCP obtained outpatient labs as she had been experiencing progressive fatigue over the past 3-4 months. She also was started on an ambulatory heart monitor this am due to recent heart palpitations. When asked, she states that she has noticed melanotic stool for the past week or so. She denies recent fever, chills, cough, chest pain, abd pain, nausea, vomiting, diarrhea, dysuria, hematuria, bloody BM's, LE swelling and recent trauma. She has been experiencing lightheadedness/dizziness with changing positions or increased exertion over the past month. She denies syncope or symptoms at rest. When asked, she denies recent NSAID, tobacco, or alcohol use. She uses Tylenol prn for pain. Her was able to provide copies of her last EGD and Colonoscopy which were performed on 05/19/[address] [facility]. Per the endoscopy report, they patient was found to have a mild Schatzki ring, small hiatial hernia, a few gastric polyps which were biopsied, erythematous mucosa of the gastric antrum and duodenum. Review of her colonoscopy report showed melanosis in the colon, non-bleeding internal hemorrhoids, diverticulosis of the sigmoid colon, one 2mm polyp and four 4-7 mm Polyps which were resected. The patient was reportedly already on famotidine prior to the imaging and was started on omeprazole as well after the findings. Reports will be placed in the patient's chart. The patient is a full code and would want her to make medical decisions for her if she cannot make them herself. Please refer to Dr. Sr's attestation for any changes to the treatment plan Allergies Allergy/AdvReac Type Severity Reaction Status Date / Time sulfamethoxazole Allergy Mild nausea and Verified 08/17/23 17:25 vomiting trimethoprim Allergy Mild nausea and Verified 08/17/23 17:25 vomiting Bactrim Allergy Unknown nausea and Verified 09/11/17 10:48 vomiting lisinopril AdvReac Intermediate Cough Verified 08/17/23 17:25 oxycodone [From Percocet] AdvReac Intermediate Nausea Verified 08/17/23 17:25 Home Medications Medication Instructions Recorded Confirmed Type aspirin 81 mg tablet,delayed 81 mg PO QPM 08/21/18 08/17/23 History release atorvastatin 10 mg tablet (Lipitor) 10 mg PO HS 08/21/18 08/17/23 History amlodipine 10 mg tablet (Norvasc) 5 mg PO QAM 04/07/21 08/17/23 History docusate sodium 100 mg capsule 100 mg PO QAM PRN Constipation 05/16/21 08/17/23 History (Stool Softener) metoprolol tartrate 25 mg tablet 25 mg PO QAM 05/16/21 08/17/23 History omeprazole 20 mg capsule,delayed 20 mg PO DAILY 04/20/22 08/17/23 History release ascorbate calcium (vitamin C) 500 500 mg PO DAILY 04/22/22 08/17/23 History mg tablet cyanocobalamin (vitamin B-12) 1,000 mcg PO DAILY 04/22/22 08/17/23 History 1,000 mcg capsule vitamin E (dl, acetate) 45 mg (100 45 mg PO DAILY 04/22/22 08/17/23 History unit) capsule estradiol 0.01% (0.1 mg/gram) 1 g vaginal 2XWK #42.5 grams 03/25/23 08/17/23 Rx vaginal cream triamcinolone acetonide 0.1 % 1 applic topical 2XWK #30 grams 03/25/23 08/17/23 Rx topical ointment losartan 50 mg tablet 50 mg PO DAILY #30 tabs 04/12/23 08/17/23 Rx ibandronate 150 mg tablet 150 mg PO MONTHLY #1 tab 04/27/23 08/17/23 Rx alendronate 70 mg tablet (Fosamax) 70 mg PO .weekly #12 tabs 07/30/23 08/17/23 Rx calcitriol 0.25 mcg capsule 0.25 mcg PO Q OTHER DAY #45 caps 08/05/23 08/17/23 Rx famotidine 20 mg tablet 20 mg PO DAILY 08/17/23 08/17/23 History furosemide 20 mg tablet 20 mg PO DAILY PRN .edema 08/17/23 08/17/23 History magnesium oxide 500 mg capsule 500 mg PO DAILY 08/17/23 08/17/23 History potassium chloride 20 mEq 20 meq PO DAILY 08/17/23 08/17/23 History tablet,extended release(part/cryst) Past Med/Surg History Medical History Stage 3b chronic kidney disease Weight loss Anemia Acute kidney injury Hypokalemia Proteinuria Proteinuria Hyperparathyroidism Hypercalcemia Stage 3a chronic kidney disease Hiatal hernia Anemia Osteoporosis HX Chronic back pain Rheumatoid arthritis Osteoarthritis GERD (gastroesophageal reflux disease) SOB (shortness of breath) on exertion "OUT OF SHAPE"/? DECONDITIONING Hyperlipidemia Hypertension Breast cancer RIGHT S/P LUMPECTOMY WITH LND/XRT (2009) Surgical History S/P repair of ventral hernia (12/05/18) Ventral hernia repair Dr. Kemp H/O foot surgery RIGHT X 3 History of total knee replacement LEFT Hx of breast reduction, elective History of herniorrhaphy (04/26/17) B/L inguinal hernia repair: 04/26/17: Grade 1 view, MAC 4, ETT 7.0 at [facility] With Dr. Kemp History of hysterectomy TOTAL History of bladder surgery X3 Family History Father Family hx of colon cancer Cancer Daughter Stroke Brother Stroke Social History Smoking Status: Never smoker Second Hand Exposure: No; Do You Dip or Chew Tobacco: No; Hx Alcohol Use: No Hx Substance Use: No Preferred Language: Macedonian Communication Ability: Effective Fruit Farmworker Required: No Beliefs That Will Affect Care: None marital status: Current Living Situation: Spouse and Family current occupational status: retired How many Children do You have: 4 Feels Safe at Home: Yes during the past year weight has: remained stable Assistive Devices: Denture - Upper, Glasses, Hearing Aid - Bilateral and Spe cial Shoe Physical Exam Physical Exam: Physical Exam: General: In no acute distress, stated age, well-nourished, non-toxic appearing HEENT: Normocephalic, atraumatic, no scleral icterus, pupils around round, symmetrical, and reactive to light, moist mucus membranes, trachea midline, no thyromegaly Chest/Pulm: No respiratory distress, symmetrical chest expansion, clear breath sounds throughout Cardiac: RRR, no murmurs noted Abdomen: Negative for ascites and bruising, normoactive bowel sounds, soft, non-tender to palpation throughout Musculoskeletal: Symmetrical and without signs of acute trauma, upper and lower extremities with full ROM, no atrophy, spasticity, or flaccidity Extremities: Radial, dorsalis pedis, and posterior tibial pulses are intact and symmetrical, no edema noted in the BL LE's Skin: Warm, dry, no rashes , lesions, or scars noted Neuro: Alert and oriented to person, place, month, year, and president, no focal defects, no tremors noted Psych: No acute distress, calm and cooperative during the exam Results & Data Results & Data Vital Signs (Past 12 Hours) Vital Signs Temp Pulse Resp BP Pulse Ox O2 Del Method 08/17/23 14:21 36.6 C 84 20 139/70 99 Room Air Laboratory Results Abnormal lab results 08/17/23 Range/Units 14:30 RBC 2.67 L (4.20-5.40) M/uL Hgb 7.7 L (12.0-16.0) g/dl Hct 25.0 L (37.0-47.0) % MCHC 30.8 L (32.0-36.0) g/dL RDW Std Deviation 54.5 H (36.4-46.3) fL RDW Coeff of Malou 16.0 H (11.5-14.5) % Reticulocyte % (Auto) 2.68 H (0.50-2.00) % Lymph # (Auto) 1.09 L (1.20-3.40) K/uL Chloride 108 H (98-107) mmol/L BUN 29 H (6-23) mg/dl Creatinine 1.47 H (0.6-1.2) mg/dl Glucose 100 H (70-99(Fasting)) mg/dl Transferrin % Sat 13 L (15-50) % Globulin 2.4 L (2.5-4.0) gm/dl Crossmatch See Detail ECG Additional Comments: Sinus rhythm with 1st degree A-V block Cannot rule out Anterior infarct , age undetermined Abnormal ECG When compared with ECG of 19-OCT-2021 08:41, [place] interval has increased Code Status & VTE Plan Code Status Full code VTE Prophylaxis Plan VTE Prophylaxis will be ordered: Yes Supervising Physician Co-Signing Physician Notes Patient seen and examined, chart reviewed, case discussed with Ciaran Kahn PA-C and I agree with the assessment and plan as above except as otherwise noted Labs and images reviewed Carito is an 82-year-old female with history of hypertension, hyperlipidemia, CKD who presented with hemoglobin of 7.7 from 11 with mildly elevated BUN and has had progressive fatigue for several months. Patient has a history of endoscopy 2021 which showed a Schatzki's ring, small hiatal hernia, gastric polyps, erythematous mucosa without ulceration. Patient does endorse that she has had very dark/black melanic stools with no hematochezia. Agree with PPI twice daily, transfusion of 1 unit for symptomatic anemia and then transfusion to a goal of 7 or symptoms. Patient with low normal blood pressure and no tachycardia; however heart rate is limited by beta-kristal. As she has been lightheaded and dizzy feel that 1 unit for symptomatic anemia is reasonable. GI consulted for endoscopy. N.p.o. agree with assessment and management above PG Care Time/CCT Total # of Minutes Spent Total Time Spent with Patient: Total time spent is greater than 50% in coordination of care (as documented) at patient's floor/unit and/or counseling patient: Coding [place] [address] INT INP/OBS CARE 3/75MIN Patient Type Established Medical Decision Making High Complexity Diagnoses Acute GI bleeding K92.2 Anemia D64.9 Stage 3b chronic kidney disease N18.32 Hypertension I10
[2023-08-17 16:42] LABS: Reticulocyte % 2.68 % (0.50-2.00); Reticulocytes # 0.07 10^6/uL (0.020-0.100)
[2023-08-17 16:57] LABS: Ferritin 24.5 ng/ml (8-388)
[2023-08-17] MEDS: PANTOprazole 40 MG in SYRINGE 0 ML IV ONE (17:03)
--- NOTE | 2023-08-17 17:48 | Electrocardiogram Report ---
Test Reason : Blood Pressure : / mmHG Vent. Rate : 071 BPM Atrial Rate : 071 BPM P-R Int : 216 ms QRS Dur : 078 ms QT Int : 422 ms P-R-T Axes : 033 -10 044 degrees QTc Int : 458 ms Sinus rhythm with 1st degree A-V block Abnormal ECG When compared with ECG of 19-OCT-2021 08:41, [place] interval has increased Confirmed by Joel Marino ([id number]) on 08/17/2023 5:48:22 PM Referred By: Mercy Hatch Confirmed By:Michael Marino
--- NOTE | 2023-08-17 20:06 | XRay Report ---
XR chest 1V portable CLINICAL HISTORY: pre-operative clearance TECHNIQUE: Single frontal radiograph of the chest was obtained. Comparison: Comparison is made to chest radiograph 01/06/2021 FINDINGS: No lines and tubes are seen. The cardiomediastinal silhouette is normal. The lungs are clear. No evid ence of pleural effusion or pneumothorax. IMPRESSION: No acute chest disease. ACT 112: Negative or not required by law. Electronically signed by: Tristin Harvey M.D. 08/17/2023 8:05 PM
[2023-08-17 20:12] LABS: Appearance Urine Clear (Clear); Bacteria Urine Automated Negative (Negative); Bilirubin Urine Negative (Negative); Blood Urine Negative (Negative); Color Urine Yellow; Epithelial Cell Urine Auto >30 /lpf (0-5); Glucose Urine UA Negative (Negative); Ketones Urine Negative (Negative); Leukocyte Esterase Urine 2+ (Negative); Nitrite Urine Negative (Negative); Protein Urine Negative (Negative); RBC Urine Automated 0-4 /hpf (0-4); Specific Gravity Urine 1.015 (1.000-1.030); Urobilinogen Urine Negative (Negative)
[2023-08-17] MEDS: ATORVASTATIN 10 MG TAB PO SCH (21:38)
[2023-08-17] MEDS: PANTOprazole 40 MG in SYRINGE 0 ML IV SCH (21:38)
[2023-08-18] MEDS: LACTATED RINGER'S 1,000 ML IV SCH (00:36)
[2023-08-18 00:40] LABS: Hematocrit (blood only) 24.7 % (37.0-47.0); Hemoglobin 7.8 g/dl (12.0-16.0); Mean Corpuscular Hemoglobin 28.7 pg (25.0-34.0); Mean Corpuscular Hgb Conc 31.6 g/dL (32.0-36.0); Mean Corpuscular Volume 90.8 fL (80.0-100.0); Mean Platelet Volume 11.1 fL (9.4-12.4); Platelet Count 124 K/uL (130-400); RDW Coefficient of Variation 15.9 % (11.5-14.5); RDW Standard Deviation 51.8 fL (36.4-46.3); Red Blood Count 2.72 M/uL (4.20-5.40); White Blood Count 4.15 K/ul (4.8-10.8)
[2023-08-18 07:05] LABS: Hematocrit (blood only) 24.7 % (37.0-47.0); Mean Corpuscular Hemoglobin 29.1 pg (25.0-34.0); Mean Corpuscular Hgb Conc 32.4 g/dL (32.0-36.0); Mean Corpuscular Volume 89.8 fL (80.0-100.0); Mean Platelet Volume 11.3 fL (9.4-12.4); Platelet Count 129 K/uL (130-400); RDW Coefficient of Variation 15.9 % (11.5-14.5); Red Blood Count 2.75 M/uL (4.20-5.40); White Blood Count 3.34 K/ul (4.8-10.8)
[2023-08-18 07:30] LABS: Prothrombin Time 10.5 Seconds (9.0-12.0)
[2023-08-18 07:36] LABS: Albumin Globulin Ratio 1.7 (0.9-2); Albumin Level 3.2 gm/dl (3.4-5.0); BUN Creatinine Ratio 18.7 (10-20); Bilirubin,Total 0.5 mg/dl (0.2-1.0); Calcium 8.7 mg/dl (8.6-10.3); Creatinine Clr Calc Pharmacy 27.7 ml/min; Est GFR (African American) 43.3 ml/min; Est GFR (Non-African American) 37.3 ml/min; Globulin 1.9 gm/dl (2.5-4.0); Potassium 4.1 mmol/L (3.5-5.1); Total Protein 5.1 gm/dl (6.0-8.3)
--- OUTSIDE RECORDS SUMMARY | 2023-08-18 08:38 | External Medical Summary | Continuity of Care Document ---
Author Name Unknown Organization [address] Address [address] [place] [phone] Care Team Providers Care Cafe Assistant Name Role Phone Mercy Hatch Primary Care Physician [phone] Encounter [facility] [id number] Date(s): 08/12/23 - 08/12/[address], [facility] [address] [place] [address] [phone] Encounter Diagnosis Body mass index [BMI] 23.0-23.9, adult(Discharge Diagnosis) - 08/12/23 Anemia(Discharge Diagnosis) - 08/12/23 Abnormal laboratory test result(Discharge Diagnosis) - 08/12/23 Heart palpitations(Discharge Diagnosis) - 08/12/23 Discharge Disposition: Home or Self Care Attending Physician: YAAKOV Hatch Shari A Referring Physician: YAAKOV Hatch Shari A Allergies, Adverse Reactions, Alerts Substance Reaction Severity Status sulfa drugs SOB welts Active Immunizations Given and Recorded Vaccine Date Status Refusal Reason influenza virus vaccine, inactivated 04/16/23 Anuj rded Medications aspirin 81 mg oral delayed release tablet Start: 06/03/23 10:45:00 EST, 1 tab, PO, Daily Start Date: 06/03/23 Status: Ordered calcitriol Start: 08/12/23 13:24:00 EST Start Date: 08/12/23 Status: Ordered Dulcolax Stool Softener Start: 06/03/23 10:47:00 EST, as needed Start Date: 06/03/23 Status: Ordered famotidine 20 mg oral tablet Start: 06/03/23 10:48:00 EST, 1 tab, PO, Daily, Disp# 90 tab, Refills: 1, Pharmacy: [facility] Start Date: 06/03/23 Stop Date: 11/30/23 Status: Ordered Fosamax 70 mg oral tablet Start: 08/12/23 13:25:00 EST, 1 tab, PO, q7days Start Date: 08/12/23 Status: Ordered furosemide 20 mg oral tablet Start: 06/03/23 10:47:00 EST, as needed Start Date: 06/03/23 Status: Ordered Lipitor 10 mg oral tablet Start: 06/03/23 10:45:00 EST, 1 tab, PO, Daily Start Date: 06/03/23 Status: Ordered magnesium oxide 500 mg oral tablet Start: 06/03/23 10:46:00 EST, 1 tab, PO, Daily Start Date: 06/03/23 Status: Ordered Metoprolol Tartrate 25 mg oral tablet Start: 08/12/23 14:10:00 EST, 1 tab, PO, Daily, Disp# 90 tab, Refills: 3, Pharmacy: [facility] Start Date: 08/12/23 Stop Date: 08/06/24 Status: Ordered Norvasc 5 mg oral tablet Start: 07/29/23 11:16:00 EST, 1 tab, PO, Daily, Disp# 90 tab, Refills: 2, Pharmacy: [facility] Start Date: 07/29/23 Stop Date: 04/24/24 Status: Ordered omeprazole 20 mg oral delayed release capsule Start: 08/12/23 14:11:00 EST, 1 cap, PO, Daily, Disp# 90 cap, Refills: 3, Pharmacy: [facility] Start Date: 08/12/23 Stop Date: 08/06/24 Status: Ordered Potassium Chloride ([id number] M20) 20 mEq oral tablet, extended release Start: 08/12/23 14:11:00 EST, 1 tab, PO, Daily, Disp# 90 tab, Refills: 3, Pharmacy: [facility] Start Date: 08/12/23 Stop Date: 08/06/24 Status: Ordered Vitamin B12 Start: 06/03/23 10:46:00 EST Start Date: 06/03/23 Status: Ordered Vitamin C Start: 06/03/23 10:46:00 EST Start Date: 06/03/23 Status: Ordered vitamin E Start: 06/03/23 10:46:00 EST Start Date: 06/03/23 Status: Ordered Mental Status 08/12/23 Barriers to Learning one year None evide nt Mandatory Health Literacy Documentation Yes Health Literacy Communication Barriers N ever Primary Language Upper Sorbian Problem List Condition Confirmation Course Effective Dates Status H ealth Status Informant Pseudophakia Confirmed Active Benign hypertension Confirmed Active Acid reflux Confirmed Active Hyperlipidemia Confirmed Active Retinal hole or tear Confirmed Active Breast cancer Confirmed Active Cervical cancer Confirmed Active Osteoporosis Confirmed Active Diagnosis Diagnosis Type Effective Dates Health Status Clinical Service Informant Anemia Discharge Diagnosis 08/12/23 Non-Specified Abnormal laboratory test result Discharge Diagnosis 08/12/23 Non-Specified Body mass index [BMI] 23.0-23.9, adult Discharge Diagnosis 08/12/23 Non-Specified Heart palpitations Discharge Diagnosis 08/12/23 Non-Specified Procedures Procedure Date Related Diagnosis Body Site Status Surgery 1 05/28/[address] Baylee Cortez, and [facility], Orthopedics Vital Signs Most recent to oldest [Reference Range]: 1 Height 158.0 cm (08/12/23 1:28 PM) Patient Weight 58.8 kg (08/12/23 1:28 PM) Body Mass Index 23.55 kg/m2 (08/12/23 1:28 PM) Temperature [36.5-37.9 DegC] 36.7 DegC (08/12/23 1:28 PM) Blood Pressure 108/52mmHg (08/12/23 1:28 PM) Cuff Pulse Pressure 56 mmHg (08/12/23 1:28 PM) Social History Social History Type Response Smoking Status Never smoked cigaret latasha Sex Female Patient Care team information Care Team Personnel Name: ELSI Georges Jesse A Position: Physician Isotope Technologist - Radiology Member Role: Lifetime Relationship Address: Address: [address] [place] [id number] Name: YAAKOV Hatch Shari A Position: Nurse Pract - Family Med Member Role: Primary Care Provider Address: Address: [address] [place] [address], [place] [address] Care Team Related Persons Name: FELICIA HALL Address: home [address] [place] [phone]
[2023-08-18] MEDS: METOPROLOL TARTRATE 25 MG TAB PO SCH (09:20)
--- NOTE | 2023-08-18 09:31 | Gastrointestinal Consultation ---
Date of Consultation August 18, 2023 Assessment & Plan (1) Anemia: Patient with significant anemia found on outpatient labs, down from her last check in 02/2023. she has noticed some dark stools the past two days. Discussed the case with Dr. Archuleta who advised on plan. - we discussed an EGD to further evaluate her anemia, dark stools. She is agreeable to having done. Will have set up to be done today since she is NPO. Patient was agreeable. - continue to monitor hgb/hct and transfuse as needed. - continue with protonix 40mg IV bid. Supervising Physician Co-Signing Physician Notes I saw the patient and agree with the findings as documented by BERNICE Hawkins Proceed with EGD. risks/benefits and procedure discussed with patient, who agrees to proceed History of Present Illness Reason for Consultation: Likely UGIB Requesting Physician: Ciaran Kahn PA-C Attending Physician: Viridiana Cortés MD History of Present Illness Patient is an 82 year old female with a past medical history significant for HTN, hyperlipidemia, hyperparathyroidism, stage 3 CKD, who presented to the [facility] ED at the recommendation of her PCP due to a Hgb of 7.7 on outpatient labs. She had a hgb of 11 noted on 03/24/23. She admits she has been feeling fatigued and lethargic over the past month which is atypical for her. she does admit to some dark stools over the past 2 days which she tells me is different for her. Typically she would move her bowels once a day to every other day, and while frequency did not change, the consistency of stool did change. she denies any nsaid use. Patient denies any current issues with nausea, vomiting, dysphagia, heartburn, abdominal pain, unintentional weight loss, or bright red blood per rectum. She tells me that she did have EGD and colonoscopy done in 04/2022 at [facility] in [place]. I do not have these records but per chart, the EGD shown schatzkis ring, small hiatal hernia, gastric polyps, erythematous antrum/duodenum. Per chart, the colonoscopy shown melanosis coli, nonbleeding internal hemorrhoids, diverticulosis, and colon polyps. she was given 1 unit PRBC since she came to the ED. Hgb today 08/18 is 8. Allergies Allergy/AdvReac Type Severity Reaction Status Date / Time sulfamethoxazole Allergy Mild nausea and Verified 08/17/23 17:25 vomiting trimethoprim Allergy Mild nausea and Verified 08/17/23 17:25 vomiting Bactrim Allergy Unknown nausea and Verified 09/11/17 10:48 vomiting lisinopril AdvReac Intermediate Cough Verified 08/17/23 17:25 oxycodone [From Percocet] AdvReac Intermediate Nausea Verified 08/17/23 17:25 Home Medications Medication Instructions Recorded Confirmed Type aspirin 81 mg tablet,delayed 81 mg PO QPM 08/21/18 08/18/23 History release atorvastatin 10 mg tablet (Lipitor) 10 mg PO HS 08/21/18 08/17/23 History docusate sodium 100 mg capsule 100 mg PO QAM PRN Constipation 05/16/21 08/17/23 History (Stool Softener) metoprolol tartrate 25 mg tablet 25 mg PO QAM 05/16/21 08/17/23 History omeprazole 20 mg capsule,delayed 20 mg PO BID 04/20/22 08/18/23 History release ascorbate calcium (vitamin C) 500 500 mg PO DAILY 04/22/22 08/17/23 History mg tablet cyanocobalamin (vitamin B-12) 1,000 mcg PO DAILY 04/22/22 08/17/23 History 1,000 mcg capsule vitamin E (dl, acetate) 45 mg (100 45 mg PO DAILY 04/22/22 08/17/23 History unit) capsule estradiol 0.01% (0.1 mg/gram) 1 g vaginal 2XWK #42.5 grams 03/25/23 08/17/23 Rx vaginal cream losartan 50 mg tablet 50 mg PO DAILY #30 tabs 04/12/23 08/17/23 Rx ibandronate 150 mg tablet 150 mg PO MONTHLY #1 tab 04/27/23 08/17/23 Rx alendronate 70 mg tablet (Fosamax) 70 mg PO .weekly #12 tabs 07/30/23 08/17/23 Rx calcitriol 0.25 mcg capsule 0.25 mcg PO Q OTHER DAY #45 caps 08/05/23 08/17/23 Rx famotidine 20 mg tablet 20 mg PO DAILY 08/17/23 08/17/23 History furosemide 20 mg tablet 20 mg PO DAILY PRN .edema 08/17/23 08/17/23 History magnesium oxide 500 mg capsule 500 mg PO DAILY 08/17/23 08/17/23 History potassium chloride 20 mEq 20 meq PO DAILY 08/17/23 08/17/23 History tablet,extended release(part/cryst) amlodipine 5 mg tablet 5 mg PO DAILY 08/18/23 08/18/23 History cholecalciferol (vitamin D3) 25 25 mcg PO DAILY 08/18/23 08/18/23 History mcg (1,000 unit) tablet Patient History Medical History Stage 3b chronic kidney disease Weight loss Anemia Acute kidney injury Hypokalemia Proteinuria Proteinuria Hyperparathyroidism Hypercalcemia Stage 3a chronic kidney disease Hiatal hernia Anemia Osteoporosis HX Chronic back pain Rheumatoid arthritis Osteoarthritis GERD (gastroesophageal reflux disease) SOB (shortness of breath) on exertion "OUT OF SHAPE"/? DECONDITIONING Hyperlipidemia Hypertension Breast cancer RIGHT S/P LUMPECTOMY WITH LND/XRT (2009) Surgical History S/P repair of ventral hernia (12/05/18) Ventral hernia repair Dr. Kemp H/O foot surgery RIGHT X 3 History of total knee replacement LEFT Hx of breast reduction, elective History of herniorrhaphy (04/26/17) B/L inguinal hernia repair: 04/26/17: Grade 1 view, MAC 4, ETT 7.0 at [facility] With Dr. Kemp History of hysterectomy TOTAL History of bladder surgery X3 Family History Father Family hx of colon cancer Cancer Daughter Stroke Brother Stroke Social History Smoking Status: Never smoker Second Hand Exposure: No; Do You Dip or Chew Tobacco: No; Hx Alcohol Use: No Hx Substance Use: No Preferred Language: Swedish Communication Ability: Effective Independent Living Specialist Required: Voice Beliefs That Will Affect Care: None marital status: Current Living Situation: Spouse current occupational status: retired How many Children do You have: 4 Feels Safe at Home: Yes during the past year weight has: remained stable Assistive Devices: Glasses Review of Systems Review of Systems: All systems reviewed & are unremarkable except as noted in HPI & below Physical Exam Constitutional: WD/WN, vitals as above Respiratory: normal respiratory effort, lungs clear to auscultation Cardiovascular: RRR, no murmur, no edema Gastrointestinal (Abdomen): normal bowel sounds, soft, nontender, no hepatosplenomegaly Skin: no rashes, warm and dry Psychiatric: Orientation: alert and oriented x 3 Affect: euthymic affect Results & Data Vital Signs (Past 12 Hours) Vital Signs Pulse Pulse Resp BP Pulse Ox Pulse Ox O2 Del Method 08/18/23 07:30 72 08/18/23 05:15 66 18 122/57 L 98 Room Air 08/17/23 23:46 68 08/17/23 23:21 69 18 135/60 94 Room Air 08/17/23 23:21 94 O2 Del Method 08/18/23 07:30 08/18/23 05:15 08/17/23 23:46 08/17/23 23:21 08/17/23 23:21 Room Air PG Care Time/CCT Total # of Minutes Spent Total Time Spent with Patient: Total time spent is greater than 50% in coordination of care (as documented) at patient's floor/unit and/or counseling patient: Coding Level of Care Code 22185 OFFICE CONSULT LVL Diagnoses Anemia D64.9 Anemia type: unspecified type Time Spent (min) 45 (1) Anemia Anemia type: unspecified type Qualified Code(s): D64.9 - Anemia, unspecified
--- NOTE | 2023-08-18 11:11 | Hospitalist Progress Note ---
Date of Service August 18, 2023 Assessment & Plan (1) Acute GI bleeding: Plan: Presented to the ED at the recommendation of her PCP due to Hgb of 7.7 on outpatient labs after experiencing progressive fatigue, lightheadedness with position changes and exertion, and now with melena x 2 in the last 2 days Hgb 7.7 on admission, down from 11 as of February of 2023 Iron studies collected prior to transfusion show a low ferritin at 24 with a low transferrin saturation of 13%, elevated reticulocyte count. MCV is normal and platelets are also mildly low as are WBCs Differential on white blood cell count only with mild lymphopenia but not really anything else concerning for bone marrow process Had EGD in 04/2022 which showed erythematous mucosa of the gastric antrum and duodenum and she has been taking omeprazole twice daily as well as famotidine once daily She is also on a baby aspirin daily for primary prevention-placed on hold She was given 1 unit of PRBCs and hemoglobin is stable today at 8.0 Appreciate GI consultation-plan for EGD today Keep n.p.o. Continue maintenance IV fluids while n.p.o. Continue to hold baby aspirin Continue Protonix 40 Mg IV twice daily Monitor CBC (2) Anemia: Plan: With iron deficiency anemia as well as anemia of chronic disease at baseline with acute blood loss anemia on top of this Given thrombocytopenia and leukopenia, need to watch this and consider hematology consult or referral as an outpatient as well (3) Stage 3b chronic kidney disease: Plan: Renal function is stable at her baseline creatinine of 1.3-1.4 Avoid nephrotoxins and renally dose meds when appropriate follow BMP Hold home losartan and amlodipine with acute GI bleed Hold home potassium She only takes Lasix as needed Follows with nephrology (4) Hypertension: Plan: BPs are normal despite GI bleeding and blood loss Continue to hold losartan and amlodipine for now to avoid hypotension Continue metoprolol with hold parameters-of note, she confirms she only takes metoprolol tartrate once a day in the morning (5) Murmur: Plan: Systolic murmur noted on exam likely flow murmur due to severe anemia Echocardiogram reviewed and cardiology notes from Dr. Perez at [facility] notes that echo in 08/2021 with mitral valve calcification but no regurgitation Check echo here No chest pains or signs of heart failure Plan DVT prophylaxis-KATHE rose, add on SCDs Disposition-continued stay Admission and Anticipated Discharge Date Admission Date: August 17, 2023 Subjective Patient has had no further black stools since admission. She thinks she feels better but hard to tell as she has not been out of bed much since receiving her blood transfusion except to go urinate in the toilet. Physical Exam Constitutional: WD/WN, vitals as above Respiratory: normal respiratory effort, lungs clear to auscultation Cardiovascular: Rate/Rhythm: regular rate and regular rhythm Heart Sounds: + murmur (2/6 holosystolic murmur at the apex) Extremities: no edema Gastrointestinal (Abdomen): normal bowel sounds, soft, nontender, no hepatosplenomegaly Psychiatric: A+Ox3, euthymic affect Results & Data Results & Data Vital Signs (Past 12 Hours) Vital Signs Pulse Pulse Resp BP Pulse Ox Pulse Ox O2 Del Method 08/18/23 07:30 72 08/18/23 05:15 66 18 122/57 L 98 Room Air 08/17/23 23:46 68 08/17/23 23:21 69 18 135/60 94 Room Air 08/17/23 23:21 94 O2 Del Method 08/18/23 07:30 08/18/23 05:15 08/17/23 23:46 08/17/23 23:21 08/17/23 23:21 Room Air Laboratory Results CBC, BMP reviewed PG Care Time/CCT Total # of Minutes Spent Total Time Spent with Patient: Total time spent is greater than 50% in coordination of care (as documented) at patient's floor/unit and/or counseling patient: Coding Level of Care Code 70685 SUB INP/OBS CARE 3/50MIN Diagnoses Acute GI bleeding K92.2 Anemia D64.9 Anemia type: unspecified type Stage 3b chronic kidney disease N18.32 Hypertension I10 Murmur R01.1 (2) Anemia Anemia type: unspecified type Qualified Code(s): D64.9 - Anemia, unspecified
--- NOTE | 2023-08-18 14:27 | Anesthesiology Consultation ---
Date of Service August 18, 2023 Assessment & Plan Chart Review Chart Review: Acceptable Risk for Surgery Consults Requested none ASA ASA3 Proposed Anesthesia Anesthesia Type: General and MAC Risk / Benefits Reviewed With: PT / POA / Parent / Guardian, Accepts Plan and Informed Consent Obtained History Surgery Operation Date: 08/18/23 17:15 Proposed Procedures p Esophagogastroduodenoscopy Dr. Archuleta - Reynold Archuleta MD Height/Weight Height: 5 ft 3 in Weight: 60.5 kg Allergies Allergy/AdvReac Type Severity Reaction Status Date / Time sulfamethoxazole Allergy Mild nausea and Verified 08/17/23 17:25 vomiting trimethoprim Allergy Mild nausea and Verified 08/17/23 17:25 vomiting Bactrim Allergy Unknown nausea and Verified 09/11/17 10:48 vomiting lisinopril AdvReac Intermediate Cough Verified 08/17/23 17:25 oxycodone [From Percocet] AdvReac Intermediate Nausea Verified 08/17/23 17:25 Medications Home Medications Medication Instructions Recorded Confirmed Last Taken aspirin 81 mg tablet,delayed 81 mg PO QPM 08/21/18 08/18/23 08/16/23 release atorvastatin 10 mg tablet (Lipitor) 10 mg PO HS 08/21/18 08/17/23 10/18/21 docusate sodium 100 mg capsule 100 mg PO QAM PRN Constipation 05/16/21 08/17/23 10/18/21 (Stool Softener) metoprolol tartrate 25 mg tablet 25 mg PO QAM 05/16/21 08/17/23 08/17/23 08:00 omeprazole 20 mg capsule,delayed 20 mg PO BID 04/20/22 08/18/23 08/17/23 08:00 release ascorbate calcium (vitamin C) 500 500 mg PO DAILY 04/22/22 08/17/23 Unknown mg tablet cyanocobalamin (vitamin B-12) 1,000 mcg PO DAILY 04/22/22 08/17/23 Unknown 1,000 mcg capsule vitamin E (dl, acetate) 45 mg (100 45 mg PO DAILY 04/22/22 08/17/23 Unknown unit) capsule estradiol 0.01% (0.1 mg/gram) 1 g vaginal 2XWK #42.5 grams 03/25/23 08/17/23 Unknown vaginal cream losartan 50 mg tablet 50 mg PO DAILY #30 tabs 04/12/23 08/17/23 08/17/23 08:00 ibandronate 150 mg tablet 150 mg PO MONTHLY #1 tab 04/27/23 08/17/23 Unknown alendronate 70 mg tablet (Fosamax) 70 mg PO .weekly #12 tabs 07/30/23 08/17/23 Unknown calcitriol 0.25 mcg capsule 0.25 mcg PO Q OTHER DAY #45 caps 08/05/23 08/17/23 08/16/23 famotidine 20 mg tablet 20 mg PO DAILY 08/17/23 08/17/23 08/17/23 08:00 furosemide 20 mg tablet 20 mg PO DAILY PRN .edema 08/17/23 08/17/23 Unknown magnesium oxide 500 mg capsule 500 mg PO DAILY 08/17/23 08/17/23 Unknown potassium chloride 20 mEq 20 meq PO DAILY 08/17/23 08/17/23 08/17/23 08:00 tablet,extended release(part/cryst) amlodipine 5 mg tablet 5 mg PO DAILY 08/18/23 08/18/23 Unknown cholecalciferol (vitamin D3) 25 25 mcg PO DAILY 08/18/23 08/18/23 Unknown mcg (1,000 unit) tablet Active Medications Generic Name Dose Route Start Last Admin Trade Name Freq PRN Reason Stop Dose Admin Atorvastatin Calcium 10 mg 08/17/23 21:00 08/17/23 21:38 Atorvastatin 10 Mg Tab PO 09/16/23 20:59 10 mg HS BILL Administration Pantoprazole Sodium 40 mg/ 10 mls @ 5 mls/min 08/17/23 21:00 08/18/23 09:22 Syringe IV 09/16/23 20:59 5 mls/min BID BILL Administration Lactated Ringer's 1,000 mls @ 80 mls/hr 08/18/23 00:30 08/18/23 13:18 Lr IV 09/17/23 00:29 80 mls/hr .[id number] BILL Administration Metoprolol Tartrate 25 mg 08/18/23 09:00 08/18/23 09:20 Metoprolol Tartrate 25 Mg Tab PO 09/17/23 08:59 25 mg QAM BILL Administration NPO Date Last Intake of Fluids: 08/18/23 Time Last Intake of Fluids: 09:30 Last Intake of Fluids Comment: sip with med Date Last Intake of Solids: 08/17/23 Time Last Intake of Solids: 11:30 Past Medical History Medical History Stage 3b chronic kidney disease Weight loss Anemia Acute kidney injury Hypokalemia Proteinuria Proteinuria Hyperparathyroidism Hypercalcemia Stage 3a chronic kidney disease Hiatal hernia Anemia Osteoporosis HX Chronic back pain Rheumatoid arthritis Osteoarthritis GERD (gastroesophageal reflux disease) SOB (shortness of breath) on exertion "OUT OF SHAPE"/? DECONDITIONING Hyperlipidemia Hypertension Breast cancer RIGHT S/P LUMPECTOMY WITH LND/XRT (2009) Exercise / Class Metabolic Activity II 4-5 Yardwork/Stairs/Walk up hill Past Family History Family History Father Family hx of colon cancer Cancer Daughter Stroke Brother Stroke Past Surgical History Surgical History S/P repair of ventral hernia (12/05/18) Ventral hernia repair Dr. Kemp H/O foot surgery RIGHT X 3 History of total knee replacement LEFT Hx of breast reduction, elective History of herniorrhaphy (04/26/17) B/L inguinal hernia repair: 04/26/17: Grade 1 view, MAC 4, ETT 7.0 at [facility] With Dr. Kemp History of hysterectomy TOTAL History of bladder surgery X3 Social History Smoking Status: Never smoker Do You Dip or Chew Tobacco: No Hx Alcohol Use: No Hx Substance Use: No substance use type: does not use Physical Exam Vital Signs Last Vital Signs Temp 36.6 C 08/18/23 14:12 Pulse 69 08/18/23 14:12 Resp 20 08/18/23 14:12 BP 158/63 H 08/18/23 14:12 Pulse Ox 97 08/18/23 14:12 O2 Del Method Room Air 08/18/23 14:12 O2 Flow Rate 0 08/17/23 17:34 ENMT Thyromental Distance: > or= 3.5 Finger Breadths Mallampati Class: II Respiratory normal respiratory effort Auscultation: lungs clear to auscultation bilaterally Cardiovascular Rate/Rhythm: regular rate and regular rhythm Psychiatric Orientation: alert and oriented x 3 Testing Laboratory Results 08/18/23 06:35 08/18/23 06:35 PT 10.5 Seconds (9.0-12.0) 08/18/23 06:35 INR 1.0 (0.9-1.1) 08/18/23 06:35 APTT 25 Seconds (21-31) 08/17/23 14:30 Urine Color Yellow 08/17/23 Unknown Urine Appearance Clear (Clear) 08/17/23 Unknown Urine pH 7.0 (4.5-7.5) 08/17/23 Unknown Ur Specific [place] 1.015 (1.000-1.030) 08/17/23 Unknown Urine Protein Negative (Negative) 08/17/23 Unknown Urine Glucose (UA) Negative (Negative) 08/17/23 Unknown Urine Ketones Negative (Negative) 08/17/23 Unknown Urine Nitrite Negative (Negative) 08/17/23 Unknown Ur Leukocyte Esterase 2+ (Negative) H 08/17/23 Unknown Urine WBC (Auto) 10-30 /hpf (0-5) H 08/17/23 Unknown Urine RBC (Auto) 0-4 /hpf (0-4) 08/17/23 Unknown U Hyaline Cast (Auto) 1-5 /lpf (0-5) 08/17/23 Unknown U Epithel Cells (Auto) >30 /lpf (0-5) H 08/17/23 Unknown Urine Bacteria (Auto) Negative (Negative) 08/17/23 Unknown Blood Type O Positive 08/17/23 14:30 Antibody Screen NEGATIVE 08/17/23 14:30 08/17/23 Unknown Urine Culture - Final Urine,Clean Catch Three types or organisms present, all moderate counts probable skin rashawn. No further identifications or sensitivities to follow.
--- NOTE | 2023-08-18 15:09 | GI REPORT ---
Patient Name: Carito Last Procedure Date: 08/18/2023 2:37 PM Date of : 1940 Admit Type: Inpatient Age: 82 Gender: Female Attending MD: Reynold Archuleta MD, Procedure: Upper GI endoscopy Providers: Reynold Archuleta MD Referring MD: Mercy Hatch Indications: Iron deficiency anemia secondary to chronic blood loss, Melena Medicines: Monitored Anesthesia Care Complications: No immediate complications. Estimated blood loss: None. Estimated Blood Loss: Estimated blood loss: none. Procedure: Pre-Anesthesia Assessment: - Prior Anticoagulants: The patient has taken no anticoagulant or antiplatelet agents. - ASA Grade Assessment: III - A patient with severe systemic disease. After obtaining informed consent, the endoscope was passed under direct vision. Throughout the procedure, the patient's blood pressure, pulse, and oxygen saturations were monitored continuously. The Scope was introduced through the mouth, and advanced to the second part of duodenum. The upper GI endoscopy was accomplished without difficulty. The patient tolerated the procedure well. Findings: A small hiatal hernia was present. The exam of the esophagus was otherwise normal. A single medium inflamed, sessile polyp with no bleeding and no stigmata of recent bleeding was found in the cardia. Biopsies were taken with a cold forceps for histology. Estimated blood loss: none. Mild gastric antral vascular ectasia was present in the gastric antrum. Coagulation for hemostasis using argon plasma at 1.2 liters/minute and 30 armstrong was successful. Estimated blood loss: none. Biopsies were taken with a cold forceps for Helicobacter pylori testing. Estimated blood loss: none. The duodenal bulb and second portion of the duodenum were normal. Impression: - Small hiatal hernia. - A single gastric polyp. Biopsied. - Gastric antral vascular ectasia. Treated with argon plasma coagulation (APC). Biopsied. - Normal duodenal bulb and second portion of the duodenum. Recommendation: - Return patient to hospital [facility] for ongoing care. - Advance diet as tolerated today. -consider imaging of liver to evaluate for portal HTN if not already done - Await pathology results. Reynold Archuleta MD 08/18/2023 3:08:53 PM This report has been signed electronically. Note Initiated On: 08/18/2023 2:37 PM Number of Addenda: 0 I attest to the content of the Intraoperative Record and orders documented therein, exceptions below {[id number]}
[2023-08-18] MEDS: PROPOFOL IV EMULSION 10 MG/ML 20 ML VIAL IV ONE (16:08)
[2023-08-18] MEDS: LIDOCAINE 2% 2 ML VIAL/AMP(20MG/ML) INFIL ONE (16:08)
[2023-08-19 08:46] LABS: Basophils # (auto) 0.03 K/uL (0.00-0.20); Basophils % (auto) 0.9 %; Eosinophils % (auto) 6.1 %; Hemoglobin 9.3 g/dl (12.0-16.0); Lymphocytes # (auto) 0.84 K/uL (1.20-3.40); Lymphocytes % (auto) 25.8 %; Mean Corpuscular Hemoglobin 29.1 pg (25.0-34.0); Mean Corpuscular Hgb Conc 32.1 g/dL (32.0-36.0); Mean Corpuscular Volume 90.6 fL (80.0-100.0); Mean Platelet Volume 11.3 fL (9.4-12.4); Monocytes # (auto) 0.44 K/uL (0.11-0.59); Monocytes % (auto) 13.5 %; Neutrophils # (auto) 1.75 K/uL (1.40-6.50); Neutrophils % (auto) 53.7 %; Platelet Count 138 K/uL (130-400); RDW Coefficient of Variation 15.6 % (11.5-14.5); RDW Standard Deviation 51.6 fL (36.4-46.3); White Blood Count 3.26 K/ul (4.8-10.8)
[2023-08-19 08:51] LABS: Albumin Globulin Ratio 1.5 (0.9-2); Albumin Level 3.6 gm/dl (3.4-5.0); Bilirubin,Total 0.6 mg/dl (0.2-1.0); Calcium 9.1 mg/dl (8.6-10.3); Creatinine Clr Calc Pharmacy 29.2 ml/min; Est GFR (African American) 46.2 ml/min; Est GFR (Non-African American) 39.8 ml/min; Globulin 2.4 gm/dl (2.5-4.0); Magnesium 1.8 mg/dl (1.7-2.4); Potassium 3.8 mmol/L (3.5-5.1)
[2023-08-19 09:06] LABS: Thyroid Stimulating Hormone 1.143 uIu/ml (0.300-4.500)
[2023-08-19 09:09] LABS: Folate (Folic Acid),Ser orPlas > 22.30 ng/ml (>5.38)
[2023-08-19 09:10] LABS: Vitamin B12 1005 pg/ml (180-914)
--- NOTE | 2023-08-19 09:41 | Ultrasound Report ---
ABDOMINAL ULTRASOUND, RIGHT UPPER QUADRANT HISTORY: Chronic upper abdominal pain portal gastropathy,assess for cirrhosis. COMPARISON: CT 12/27/2022 FINDINGS: Pancreas: The pancreas demonstrates a normal echotexture. Liver: Liver is heterogeneous measuring 12 cm. No solid hepatic mass lesions identified. 7 mm left he patic lobe cyst. There is equivocal marginal nodularity of the liver. No ascites. Gallbladder: No gallbladder wall thickening. No gallstones. CBD: 0.4 cm. Right kidney: Mild diffuse cortical thinning. No hydronephrosis. IMPRESSION: 1. Subtle marginal nodularity of the liver is equivocal for early cirrhosis. Correlate with LFTs. 2. No hepatic mass or ascites. 3. Unremarkable gallbladder. ACT 112: Negative or not required by law. Electronically signed by: Suleiman Chapa M.D. 08/19/2023 9:39 AM
--- NOTE | 2023-08-19 09:44 | Communication Note ---
Date of Service: August 19, 2023 Patient is feeling well today. no gi concerns currently. Hgb improved to 9.3. she is tolerating clears and requesting to advance diet. she is also requesting discharge as she is feeling well. s/p EGD 08/18/23 small hiatal hernia, single gastric polyp, GAVE treated with APC. - recommend that she be discharged on protonix 40mg PO bid. - will plan to see her back in our office on 09/09/23 at 1:20pm. - okay to advance diet as tolerated.
[2023-08-19] MEDS: ACETAMINOPHEN 325 MG TAB PO PRN (11:47)
--- NOTE | 2023-08-19 12:59 | Anesthesiology Progress Note ---
Date of Service August 18, 2023 Anesthesia Post Procedure Vital Signs Vital Signs: Temp Pulse Pulse Pulse Resp BP Pulse Ox 08/19/23 11:00 36.7 C 63 18 152/67 H 94 08/19/23 10:50 37 C 68 80 18 137/69 95 08/19/23 09:00 08/19/23 07:22 37 C 80 18 137/69 95 08/19/23 07:00 68 08/19/23 04:04 36.5 C 74 18 112/67 96 08/19/23 00:00 68 08/18/23 22:31 36.6 C 73 17 112/65 93 08/18/23 19:42 36.6 C 73 17 133/77 95 08/18/23 18:50 36.5 C 74 16 143/83 H 97 08/18/23 17:50 36.5 C 71 18 153/79 H 97 08/18/23 16:50 36.4 C L 62 16 151/70 H 96 08/18/23 16:20 36.5 C 66 18 149/77 H 98 08/18/23 16:19 64 08/18/23 16:15 08/18/23 16:05 36.6 C 70 16 155/69 H 97 08/18/23 15:37 68 16 158/71 H 96 08/18/23 15:22 65 16 142/64 H 95 08/18/23 15:07 66 14 117/56 L 95 08/18/23 14:12 36.6 C 69 20 158/63 H 97 O2 Del Method 08/19/23 11:00 Room Air 08/19/23 10:50 08/19/23 09:00 Room Air 08/19/23 07:22 Room Air 08/19/23 07:00 08/19/23 04:04 Room Air 08/19/23 00:00 08/18/23 22:31 Room Air 08/18/23 19:42 Room Air 08/18/23 18:50 Room Air 08/18/23 17:50 Room Air 08/18/23 16:50 Room Air 08/18/23 16:20 Room Air 08/18/23 16:19 08/18/23 16:15 Room Air 08/18/23 16:05 Room Air 08/18/23 15:37 Room Air 08/18/23 15:22 Room Air 08/18/23 15:07 Room Air 08/18/23 14:12 Room Air Transfer of Care Handoff Completed per policy Notes Mental Status: alert / awake / arousable and participated in evaluation Nausea / Vomiting: adequately controlled Pain: adequately controlled Airway Patency, RR, SpO2: stable & adequate BP & HR: stable & adequate Hydration State: stable & adequate Anesthetic Complications: no major complications apparent and Pt Satisfied with anesthetic care
--- NOTE | 2023-08-19 14:27 | Discharge Summary ---
Date of Service August 19, 2023 Admission HPI Per Admitting Provider Carito is an 82 year old female with a PMH significant for HTN, hyperlipidemia, hyperparathyroidism, stage 3 CKD who presented to the [facility] ED at the recommendation of her PCP due to a Hgb of 7.7 on outpatient labs. She remained stable in the ED. Labs were significant for a hgb of 7.7 (down from 11 as of 03/24/23), HCT of 25, MCHC of 30, MCV WNL, BUN of 29. Prior to admission the patient was consented for blood, type/screen was ordered, and type/crossed was ordered with 2 units being held for now. At the time of the exam the patient was sitting in bed in no acute distress with her bedside, history was obtained from both. She states that her PCP obtained outpatient labs as she had been experiencing progressive fatigue over the past 3-4 months. She also was started on an ambulatory heart monitor this am due to recent heart palpitations. When asked, she states that she has noticed melanotic stool for the past week or so. She denies recent fever, chills, cough, chest pain, abd pain, nausea, vomiting, diarrhea, dysuria, hematuria, bloody BM's, LE swelling and recent trauma. She has been experiencing lightheadedness/dizziness with changing positions or increased exertion over the past month. She denies syncope or symptoms at rest. When asked, she denies recent NSAID, tobacco, or alcohol use. She uses Tylenol prn for pain. Her was able to provide copies of her last EGD and Colonoscopy which were performed on 05/19/2022 at [facility]. Per the endoscopy report, they patient was found to have a mild Schatzki ring, small hiatial hernia, a few gastric polyps which were biopsied, erythematous mucosa of the gastric antrum and duodenum. Review of her colonoscopy report showed melanosis in the colon, non-bleeding internal hemorrhoids, diverticulosis of the sigmoid colon, one 2mm polyp and four 4-7 mm Polyps which were resected. The patient was reportedly already on famotidine prior to the imaging and was started on omeprazole as well after the findings. Reports will be placed in the patient's chart. The patient is a full code and would want her to make medical decisions for her if she cannot make them herself. Please refer to Dr. Sr's attestation for any changes to the treatment plan Discharge Data Allergies Allergy/AdvReac Type Severity Reaction Status Date / Time sulfamethoxazole Allergy Mild nausea and Verified 08/17/23 17:25 vomiting trimethoprim Allergy Mild nausea and Verified 08/17/23 17:25 vomiting Bactrim Allergy Unknown nausea and Verified 09/11/17 10:48 vomiting lisinopril AdvReac Intermediate Cough Verified 08/17/23 17:25 oxycodone [From Percocet] AdvReac Intermediate Nausea Verified 08/17/23 17:25 Consultations 08/17/23 15:51 ED Decision to Admit Stat 08/17/23 16:49 Consult Gastroenterology Routine Procedures Performed Operation Date: 08/18/23 17:15 Actual Procedures p EGD Hemostasis - Reynold Archuleta MD Ordered Studies 08/19/23 liver Routine Hospital Course (1) Acute GI bleeding: Presented to the ED at the recommendation of her PCP due to Hgb of 7.7 on outpatient labs after experiencing progressive fatigue, lightheadedness with position changes and exertion, and now with melena x 2 in the last 2 days Hgb 7.7 on admission, down from 11 as of February of 2023 Iron studies collected prior to transfusion show a low ferritin at 24 with a low transferrin saturation of 13%, elevated reticulocyte count. MCV is normal and platelets are also mildly low as are WBCs Differential on white blood cell count only with mild lymphopenia but not really anything else concerning for bone marrow process Had EGD in 04/2022 which showed erythematous mucosa of the gastric antrum and duodenum and she has been taking omeprazole twice daily as well as famotidine once daily She is also on a baby aspirin daily for primary prevention-placed on hold She was given 1 unit of PRBCs and hemoglobin is stable today at 8.0 Appreciate GI consultation-plan for EGD today Keep n.p.o. Continue maintenance IV fluids while n.p.o. Continue to hold baby aspirin Continue Protonix 40 Mg IV twice daily Monitor CBC (2) Anemia: With iron deficiency anemia as well as anemia of chronic disease at baseline with acute blood loss anemia on top of this Given thrombocytopenia and leukopenia, need to watch this and consider hematology consult or referral as an outpatient as well (3) Stage 3b chronic kidney disease: Renal function is stable at her baseline creatinine of 1.3-1.4 Avoid nephrotoxins and renally dose meds when appropriate follow BMP Hold home losartan and amlodipine with acute GI bleed Hold home potassium She only takes Lasix as needed Follows with nephrology (4) Hypertension: BPs are normal despite GI bleeding and blood loss Continue to hold losartan and amlodipine for now to avoid hypotension Continue metoprolol with hold parameters-of note, she confirms she only takes metoprolol tartrate once a day in the morning (5) Murmur: Systolic murmur noted on exam likely flow murmur due to severe anemia Echocardiogram reviewed and cardiology notes from Dr. 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 He was diagnosed with acute gastrointestinal bleed due to gastric antral vascular ectasia (GAVE, watermelon stomach) which was treated using endoscopy and argon plasma. Please follow-up with gastroenterology as noted above on discharge. Recommend stopping aspirin. Switch omeprazole to pantoprazole as prescribed. Your losartan and amlodipine were held during admission, recommend restarting just the losartan on discharge and follow-up with your primary care physician to decide whether to restart your amlodipine. Recommend following up with your cyber ops planner to discuss alternative treatm ents for her osteoporosis since Fosamax can cause gastrointestinal mucosal irritation, therefore this is being discontinued. Your liver ultrasound was concerning for early cirrhosis. Hepatitis panel is pending on discharge. Please follow-up with gastroenterology for the results of this. Pending Studies at Discharge: Yes Stand-Alone Forms: My [facility], Smoking Cessation Medications and DC Order Prescriptions: New pantoprazole 40 mg tablet,delayed release (DR/EC) 40 mg PO BID Qty: 60 0RF Continued losartan 50 mg tablet 50 mg PO DAILY Qty: 30 6RF calcitriol 0.25 mcg capsule 0.25 mcg PO Q OTHER DAY Qty: 45 1RF estradiol 0.01 % (0.1 mg/gram) cream 1 g vaginal 2XWK Qty: 42.5 3RF Rx Instructions: Insert 1/4 applicatorful vaginally 2 time a week. docusate sodium [Stool Softener] 100 mg capsule 100 mg PO QAM PRN (Reason: Constipation) metoprolol tartrate 25 mg tablet 25 mg PO QAM ascorbate calcium (vitamin C) 500 mg tablet 500 mg PO DAILY vitamin E (dl, acetate) 45 mg (100 unit) capsule 45 mg PO DAILY cyanocobalamin (vitamin B-12) 1,000 mcg capsule 1,000 mcg PO DAILY atorvastatin [Lipitor] 10 mg Tablet 10 mg PO HS potassium chloride 20 mEq tablet,ER particles/crystals 20 meq PO DAILY famotidine 20 mg tablet 20 mg PO DAILY furosemide 20 mg Tablet 20 mg PO DAILY PRN (Reason: .edema) magnesium oxide 500 mg Capsule 500 mg PO DAILY cholecalciferol (vitamin D3) 25 mcg (1,000 unit) Tablet 25 mcg PO DAILY Discontinued alendronate [Fosamax] 70 mg tablet 70 mg PO .weekly Qty: 12 1RF omeprazole 20 mg capsule,delayed release(DR/EC) 20 mg PO BID aspirin 81 mg Tablet,Delayed Release (Dr/Ec) 81 mg PO QPM amlodipine 5 mg tablet 5 mg PO DAILY Discharge Orders: Discharge Order (Routine); Ordered 08/19/23 Ordered By: Jaime Martino/Other Patient Handouts: GI Bleeding Causes and Tests Admission Data Admit Date/Time: 08/17/23 16:18 Attending Provider: Jaime Myles Admit Provider: French Sr Primary Care Provider: Mercy Hatch Other Providers: French Sr; Reynold Archuleta Other Interventions: Discharge Summary Assessment (RN) Last Done: 08/19/23 10:50 Coding Diagnoses Acute GI bleeding K92.2 Anemia D64.9 Anemia type: unspecified type Stage 3b chronic kidney disease N18.32 Hypertension I10 Murmur R01.1
[2023-08-21 12:17] LABS: HBSAG NON-REACTIVE (NON-REACTIVE); Hepatitis A Antibody IgM NON-REACTIVE (NON-REACTIVE); Hepatitis B Core Antibody IgM NON-REACTIVE (NON-REACTIVE)
== END 2023-08-19 15:47 | disposition home or self-care (01) | DRG 392 ==
LOC: ED 13:57 → SUATTDRO 16:18 → EDINP 16:18 → 2N 17:07